=== PATIENT | male | born 1950 | race Caucasian/White ===

== ENCOUNTER 2016-12-09 01:03 | Day surgery (SDC) | payer MEDICARE ==
[2016-12-09] VITALS (14 sets, daily range): BP systolic 142–173; BP diastolic 64–89; PULSE 72–77; RESP 16–20; O2SAT 93–97
[~2016-12-09 01:03] MED LIST: AMLO10TA3 PO; ATOR10TA66 PO; CHOL10008 PO; FENO160T14 PO; INSLIS SUBQ; INSU100I13 SUBQ; WARF10TA4 PO
[2016-12-09] MEDS ORDERED: 0.9% Sodium Chloride 1,000 ML IV ONE (07:00)
[2016-12-09 07:46] LABS: BASOPHILS % (AUTO) 0.1 % (0-3); EOSINOPHILS % (AUTO) 0 % (0-5)
[2016-12-09 07:52] LABS: MONOCYTES % (AUTO) 2.5 % (4-12); Mean Corpuscular Hemoglobin 26.6 pg (27.0-35.0); Mean Corpuscular Volume 81.5 fL (81-100); Platelet Count 506 bil/L (150-400)
[2016-12-09] MEDS ORDERED: Sodium Bicarb (50 mEq) 8.4% 1 mEq/mL 50 mL Syringe ONE (07:55)
[2016-12-09] MEDS ORDERED: Heparin 10,000 Unit/1,000 mL NS Premix IV ONE (08:01)
[2016-12-09] MEDS ORDERED: Heparin 1,000 Unit/mL 10 mL Inj ONE (08:01)
--- NOTE | 2016-12-09 08:45 | NUR ---
0700 admit: Patient ambulates into department via walker with sister. His questions are answered, IV;s X 2 started and labs drawn. Consent previously signed and he is prepped for procedure.
[2016-12-09] MEDS ORDERED: fentaNYL-PF 50 mCg/mL 2 mL Inj ONE (08:48)
--- NOTE | 2016-12-09 10:32 | DI96 ---
[address] [address] PERIPHERAL CATHETERIZATION/INTERVENTION REPORT PATIENT: KENNETH WITT : 1950 MR#: [id number] ADMIT: 12/09/2016 JOB ID: [id number] DATE: 12/09/2016 PATIENT PROFILE: The patient is a 66-year-old male with history of obesity, obstructive sleep apnea, hypertension, hyperlipidemia, diabetes and nicotine addiction. He has nonhealing ulcer of both feet. PROCEDURE: 1. Conscious sedation for 40 minutes. 2. Vascular access from the left groin. 3. Selective contralateral right superficial femoral angiogram with runoff. 4. Selective ipsilateral left common femoral angiogram with runoff. VASCULAR CLOSURE DEVICE: None. COMPLICATIONS: None. METHOD: Conscious sedation was achieved with IV Versed and IV fentanyl. Vascular access was obtained from the left groin under 1% lidocaine local anesthesia using a 5-Kosovan sheath. A 5-Kosovan rim catheter was initially used but could not get over the horn. A 5-Kosovan VCF catheter was then used and was able to get over the horn direct into the right superficial femoral artery. This was exchanged over a Glidewire into a 4-Kosovan slip cath. The tip of the slip catheter was placed in the proximal portion of the right superficial femoral artery. Selective contralateral right superficial femoral angiogram with runoff was performed in the AP view by injecting contrast at a rate of 4 cc/sec for 7 seconds. An ZACARIAS and POSEY oblique view was performed at the trifurcation below the knee. The slip catheter was then removed. Selective ipsilateral left common femoral angiogram with runoff was performed via the femoral sheath by injecting contrast at a rate of 4 cc/sec for 7 seconds. This catheter was withdrawn. Following the sheath removal, hemostasis was achieved by manual compression. The patient tolerated the procedure well. [facility]. TOTAL CONTRAST USED: 62 cc. FLUOROSCOPY TIME: 4.8 minutes. TOTAL RADIATION DOSE: 222 mGy. RESULTS: 1. The right superficial femoral artery has 40% stenosis in the distal mid portion. The previous stent in the distal right superficial femoral artery and right popliteal artery has diffuse minor stenosis of 20%-30%. 2. The below-knee right popliteal artery has 75% stenosis. The right anterior tibial artery appears normal. The right tibioperoneal trunk has minor irregularity. The right peroneal artery has 70% stenosis at its origin. The right posterior tibial artery has critical 98% stenosis at its origin. 3. The left common femoral artery has minor 10%- 20% stenosis. The left superficial femoral artery has minor irregularity of 20% stenosis. The left popliteal artery has minor disease. There is three-vessel runoff below the right knee. They all have minor irregularity. CONCLUSION: 1. Patent right distal superficial femoral artery stent. 2. Severe 75% distal [id number] right popliteal artery stenosis. 3. Severe stenosis of the origin of the right popliteal artery and right posterior tibial artery. PLAN: Percutaneous intervention will be performed to the right popliteal artery, right peroneal and posterior tibial artery in approximately two weeks due to his chronic kidney disease, stage 4.
--- NOTE | 2016-12-09 10:35 | NUR ---
1000 post angiogram: patient returns from [facility] alert and denying pain. R groin site is soft and dry. Patient's sat level noted to drop to low 80's when drifting to sleep.
[2016-12-09] MEDS ORDERED: Insulin Human REGular-Omnicell 100 Unit/mL SUBQ ONE (12:15)
--- NOTE | 2016-12-09 16:34 | NUR ---
D/C home from [facility] following a recovery post angiogram diagnostic study of lower extremities. Pt will return for further intervention at a later date, office will contact patient at home. Left puncture site is soft and non-tender at time of discharge from [facility]. Discharge instructions reviewed with his sister over the phone by Lila Parish RN. Pt declines to listen to discharge instructions, and wished his sister to sign his discharge instructions.
== END 2016-12-09 23:59 | disposition home or self-care (01) ==
LOC: SOUO 01:03
PROVIDERS: ATTEND Internal Medicine Interventional Cardiology
DX: I70.234 Atherosclerosis of native arteries of right leg with ulceration of heel and midfoot (principal); L97.419 Non-pressure chronic ulcer of right heel and midfoot with unspecified severity; I70.235 Atherosclerosis of native arteries of right leg with ulceration of other part of foot; L97.519 Non-pressure chronic ulcer of other part of right foot with unspecified severity; I70.245 Atherosclerosis of native arteries of left leg with ulceration of other part of foot; L97.529 Non-pressure chronic ulcer of other part of left foot with unspecified severity; E11.621 Type 2 diabetes mellitus with foot ulcer; E11.65 Type 2 diabetes mellitus with hyperglycemia; E11.22 Type 2 diabetes mellitus with diabetic chronic kidney disease; I12.9 Hypertensive chronic kidney disease with stage 1 through stage 4 chronic kidney disease, or unspecified chronic kidney disease; N18.4 Chronic kidney disease, stage 4 (severe); E78.5 Hyperlipidemia, unspecified; G47.33 Obstructive sleep apnea (adult) (pediatric); F17.210 Nicotine dependence, cigarettes, uncomplicated; E66.01 Morbid (severe) obesity due to excess calories; Z68.35 Body mass index [BMI] 35.0-35.9, adult; Z86.711 Personal history of pulmonary embolism; Z79.4 Long term (current) use of insulin; Z79.01 Long term (current) use of anticoagulants; Z95.820 Peripheral vascular angioplasty status with implants and grafts
CPT/HCPCS: 36247; 36415; 75716; 80048; 85025; 93005; 99152; 99153; C1769; J1644; J1815; J2060; J2250; J3010; J7030; Q9967

== ENCOUNTER 2016-12-15 13:30 | Inpatient (IN) | payer MEDICARE ==
[~2016-12-15] VITALS: Ht 190.5 cm; Wt 104.4 kg
[2016-12-15 15:16] VITALS: BP 159/88; PULSE 77; RESP 18; O2SAT 97
[2016-12-15] MEDS ORDERED: Polyethylene Glycol (PEG) 17 Gm Powder PO PRN (16:10)
[2016-12-15] MEDS ORDERED: Ondansetron 2 mg/mL 2 mL Inj IVPUSH PRN (16:10)
[2016-12-15] MEDS ORDERED: Alum-Mag Hydrox-Simeth 30 mL Suspension PO PRN (16:10)
[2016-12-15] MEDS ORDERED: Glucose 40% Oral Gel 15 Gm Tube PO PRN (16:25)
[2016-12-15] MEDS ORDERED: Dextrose 10% 250 ML IV PRN (16:25)
--- NOTE | 2016-12-15 16:54 | PCM.HPMED ---
Subjective Date of Service Dec 15, 2016 Primary Provider: Admitting Physician: Eron Reinoso Primary Care Physician: Nida Garza MD Attending Physician: Eron Reinoso Chief Complaint: Worsening of left heel ulcer, admitted here for vascular procedure by Dr Arcos later this week History of Present Illness: Patient states that his right heel wound is getting worse and gets infected. He was seen at the wound clinic at [place] today when they noted it to be worse the arranged for him to be admitted here so that could form of a vascular procedure on his right tibial or popliteal artery that had been planned for later this month. Patient had a wound culture that showed P.vulgaris. It is not clear if he was placed on antibiotic therapy for that. More recently he had been on Augmentin and then on December 05 a culture was done which showed Morganella morganii and providentia rettgeri. Augmentin was changed to Cefdinir. The wound clinic faxed these cultures over to us. He does have some erythema in the third way up the posterior calf but he says this is not recently changed. He is having more pain and she also has been using some old OxyContin. He did have episode of sweats about week ago but none more recently and no fever or chills. He does have a lot of drainage from the right heel but he is not sure that this is recently changed although he does think the odor is more foul. Review of Systems: He had an episode of vertigo 3 weeks ago that lasted 24 hours and none since Intermittent chronic constipation A year and half ago his weight was over 400 and he has had some intentional weight loss followed by unintentional weight loss since his weight is currently 280 pounds Review of systems otherwise unremarkable Allergies Coded Allergies: metformin (Unverified Allergy, Mild, 12/09/16) DIARRHEA oxycodone (Unverified Allergy, Mild, 12/09/16) Home Medications He is not able to list his medications according to the information from [facility] current medications are: Warfarin (dose uncertain) Methylprednisolone 4 mg, and early November but dose and duration unclear Acidophilus 1 tablet twice a day Aspart insulin 30 units twice a day (but then there is mention of his difficulties affording insulin Lantus insulin 30 units at bedtime (but then patient says he takes 30 in the morning and sometimes 30 and bedtime depending on his glucose then became irritated and not discuss details any further) Atorvastatin 10 mg daily Vitamin D 1000 units daily Fenofibrate 160 mg daily Lispro insulin 3 times a day with meals per sliding scale Cefdinor 300 mg every 12 hours Amlodipine 10 mg daily Oxycodone 5 mg/acetaminophen 325 mg 1-2 tablets every 6 hours when necessary pain (but then patient gives a long story about not being able to tolerate oxycodone due to nausea vomiting and abdominal pain but does quite well on OxyContin and has been taking this from a cesxsbq-iuwo-gqu prescription recently ) PMH Obesity (says was over 400 pounds a year and half ago but currently 280 pounds) Obstructive sleep apnea is on his problem list but he denies this, says he has never been tested for, and does not have a CPAP machine Hypertension Hyperlipidemia Diabetes mellitus with neuropathy Peripheral vascular disease with Doppler on November 27 showing an occluded right posterior tibial artery which had been patent prior exam Nonhealing ulcers of both feet 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 Ruptured lumbar disc in 1998 Surgical History Tonsillectomy Surgery on a left kidney cyst Family History He declines to give this information Social History Occupation: retired appliance repairman Hx Alcohol Use: No Hx Substance Use: No Smoking Status: Current Every Day Smoker (currently half pack per day, at his max was a pack per day) Exam Vital Signs Vital Sign - Last Date Time Temp Pulse Resp B/P Pulse Ox O2 Delivery O2 Flow Rate FiO2 12/15/16 15:16 36.8 77 18 159/88 97 Room Air Exam General: Alert and oriented, no acute distress HEENT: Unremarkable Neck: No JVD, carotids 2+ Heart: Regular, 2/6 systolic murmur which seems loudest at the right upper sternal border Lungs: Clear Abdomen: Soft, non-tender Extremities: Did not remove the dressings from the left foot, did look under the dressing on the right heel and there is a large area with thick appearing skin and an irregular tear in this that is draining foul smelling reddish brown thick fluid, he has some surrounding erythema that extends one third up the posterior calf. Not able to easily locate pedal pulses. Neuro: hAnd ambulette driver are strong and equal, moves both lower extremities well Lab and Diagnostics Labs Labs at [facility] today: CBC showed a WBC of 16.0 with 70.2% neutrophils, hemoglobin of 11.8 Chemistries: Alkaline phosphatase 202 Total bili 0.5 B UN 45 Creatinine 2.1 Glucose 172 Total protein 8.3 Albumin 3.3 AST 30 ALP 26 Sodium 137 Potassium 4.3 Chloride 103 Bicarbonate 25 Assessment & Plan # Infected Right foot ulcer - Based on December 05 wound culture at [facility] Christina should provide adequate coverage so we will begin this - Wound nurse evaluation - will use IV morphine for pain control - Since he states he is unable to take oxycodone (although OxyContin is okay), will order some oral short acting morphine as needed as well # Peripheral vascular disease - Angiogram here on December 09 showed: 1. Patent right distal superficial femoral artery stent. 2. Severe 75% distal [id number] right popliteal artery stenosis. 3. Severe stenosis of the origin of the right popliteal artery and right posterior tibial artery. - This apparently was done after Doppler at [facility] November 27 felt right posterior tibial artery was occluded - Vascular procedure by Dr. Armstrong planned for the morning of December 18 # Diabetes mellitus - Difficult to tell what insulin he is actually taking home - We will start him with Lantus 30 mg at bedtime and the high-dose lispro sliding scale - He refuses a diabetic or heart healthy diet and therefore was placed on a general diet # Chronic anticoagulation with warfarin for history of DVT and pulmonary embolus - We will hold warfarin due to planned vascular procedure on December 18 - Instead place on therapeutic Lovenox but hold 12 hours prior to procedure # Hypertension and hyperlipidemia - Continue usual medications which appear to be atorvastatin, fenofibrate, and amlodipine # Systolic heart murmur - It sounds like an echocardiogram might have been suggested to him but he did not want to do it or never got around to Sheryl Newby MD Dec 15, 2016 16:54
[2016-12-15 17:04] LABS: BASOPHILS % (AUTO) 0.2 % (0-3); EOSINOPHILS % (AUTO) 1.9 % (0-5); MONOCYTES % (AUTO) 6.5 % (4-12); Mean Corpuscular Hemoglobin 26.3 pg (27.0-35.0); NEUTROPHILS % (AUTO) 64.1 % (40-74); Platelet Count 522 bil/L (150-400)
[2016-12-15] MEDS: Insulin LISPRO 300 Unit/3 mL Inj SUBQ SCH ×2 (17:30→21:13)
[2016-12-15] MEDS ORDERED: Piperacillin-Tazo 3.375 Gm Inj 3.375 GM in Dextrose 5% Minibag Plus 50 ML IV ONE (18:35)
[2016-12-15 18:57] LABS: APPEARANCE,URINE CLEAR (CLEAR,HAZY); COLOR,URINE YELLOW (YELLOW); OCCULT BLOOD,URINE TRACE (NEGATIVE)
[2016-12-15 18:58] LABS: UROBILINOGEN,URINE NORMAL (NORMAL)
[2016-12-15 19:35] LABS: INR 1.97 ratio
--- NOTE | 2016-12-15 19:40 | NUR ---
Admission Pt arrived from [facility] at 1506, was able to transfer self to bed walking. Pt states he has no pain "unless maybe I jumped a few times just on that foot." Pt has left wrist IV s/l. SIMRAN POON RA, A&O x 3. Poor historian, attempted to do admission and pt unable to answer most questions. Pt using urinal in bed. Asking multiple times when he can eat or drink. Pt has multiple skin abrasions over body and both feet have dressings in place. Pt oriented to room and call light, bed in low. Care continues.
[2016-12-15] MEDS ORDERED: 0.9% Sodium Chloride 250 ML ONE (19:46)
[2016-12-15] MEDS: Sodium Chloride LOK Flush 10 mL Syringe IVFLUSH SCH (20:22)
--- NOTE | 2016-12-15 20:55 | PCM.CONPHA ---
Subjective Date of Service: Dec 15, 2016 Worsening of left heel ulcer, admitted here for vascular procedure by Dr Josselyn middleton this week Reason for Pharmacy Consult: Anticoagulation Management Objective Vital Signs Date Time Temp Pulse Resp B/P Pulse Ox O2 Delivery O2 Flow Rate FiO2 12/15/16 15:16 36.8 77 18 159/88 97 Room Air Weight (Kilograms): 132.000 Height (Feet): 6 Height (Inches): 3.00 Test 12/15/16 17:01 12/15/16 18:22 12/15/16 19:05 White Blood Count 15.3th/mm3 (3.8-10.1) Red Blood Count 4.45mil/mm3 (4.40-5.80) Hemoglobin 11.7g/dL (13.8-17.2) Hematocrit 36.5% (41.0-50.0) Mean Corpuscular Volume 82.0fL (81-100) Mean Corpuscular Hemoglobin 26.3pg (27.0-35.0) Mean Corpuscular Hemoglobin Concent 32.1% (32.0-37.0) Red Cell Distribution Width 15.5% (12.3-15.4) Platelet Count 522bil/L (150-400) Neutrophils (%) (Auto) 64.1% (40-74) Lymphocytes (%) (Auto) 26.0% (14-46) Monocytes (%) (Auto) 6.5% (4-12) Eosinophils (%) (Auto) 1.9% (0-5) Basophils (%) (Auto) 0.2% (0-3) Sodium Level 134mEq/L (134-144) Potassium Level 4.7mEq/L (3.5-5.2) Chloride Level 98mEq/L (97-108) Carbon Dioxide Level 19mmol/L (18-29) Blood Urea Nitrogen 40mg/dL (8-27) Creatinine 1.86mg/dL (0.76-1.27) Estimat Glomerular Filtration Rate 39mL/min (>59) Glucose Level 165mg/dL (60-99) Calcium Level 9.1mg/dL (8.5-10.1) Total Bilirubin 0.3mg/dL (0.0-1.2) Aspartate Amino Transf (AST/SGOT) 27U/L (0-50) Alanine Aminotransferase (ALT/SGPT) 16U/L (0-44) Alkaline Phosphatase 170U/L (25-160) Total Protein 7.0g/dL (6.4-8.4) Albumin 2.5g/dL (3.4-5.0) Urine Color Yellow (YELLOW) Urine Appearance Clear (CLEAR,HAZY) Urine pH 7.0 (5.0-8.0) Urine Specific [place] 1.010 (1.003-1.035) Urine Protein Negativemg/dL (NEG,TRACE) Urine Glucose (UA) Negativemg/dL (NEGATIVE) Urine Ketones Negativemg/dL (NEGATIVE) Urine Occult Blood Trace (NEGATIVE) Urine Nitrite Negative (NEGATIVE) Urine Bilirubin Negative (NEGATIVE) Urine Urobilinogen Normalmg/dL (NORMAL) Urine Leukocyte Esterase Negative (NEGATIVE) Urine RBC 0-2/hpf (0-2) Urine WBC 0-5/hpf (0-5) Urine Epithelial Cells None/hpf (NONE-MOD) Urine Crystals None seen (NONE SEEN) Urine Bacteria Few/hpf (NONE-FEW) Urine Hyaline Casts None/lpf (NONE) Urine Granular Casts None seen (NONE SEEN) Urine Waxy Casts None seen (NONE SEEN) Urine Red Blood Cell Casts None seen (NONE SEEN) Urine White Blood Cell Casts None seen (NONE SEEN) Urine Mucus None seen (None Seen) Urine Trichomonas None seen (NONE SEEN) Urine Yeast None (NONE SEEN) Urinalysis Comment None Urine Culture Reflexed Not indicated Prothrombin Time 21.4sec (8.1-12.5) Prothromb Time International Ratio 1.97ratio Assessment/Plan Assessment/Plan ENOXAPARIN MANAGEMENT A\ 66YO M ADMITED FOR RIGHT HEEL WOUND WITH PLANNED VASCULAR PROCEDURE December PT TAKES WARFARIN AT HOME FOR HISTORY OF DVT/PE CURRENT INR =1.97 APN=955. GFR=61 Test 12/15/16 17:01 12/15/16 18:22 12/15/16 19:05 White Blood Count 15.3th/mm3 (3.8-10.1) Red Blood Count 4.45mil/mm3 (4.40-5.80) Hemoglobin 11.7g/dL (13.8-17.2) Hematocrit 36.5% (41.0-50.0) Mean Corpuscular Volume 82.0fL (81-100) Mean Corpuscular Hemoglobin 26.3pg (27.0-35.0) Mean Corpuscular Hemoglobin Concent 32.1% (32.0-37.0) Red Cell Distribution Width 15.5% (12.3-15.4) Platelet Count 522bil/L (150-400) Neutrophils (%) (Auto) 64.1% (40-74) Lymphocytes (%) (Auto) 26.0% (14-46) Monocytes (%) (Auto) 6.5% (4-12) Eosinophils (%) (Auto) 1.9% (0-5) Basophils (%) (Auto) 0.2% (0-3) Sodium Level 134mEq/L (134-144) Potassium Level 4.7mEq/L (3.5-5.2) Chloride Level 98mEq/L (97-108) Carbon Dioxide Level 19mmol/L (18-29) Blood Urea Nitrogen 40mg/dL (8-27) Creatinine 1.86mg/dL (0.76-1.27) Estimat Glomerular Filtration Rate 39mL/min (>59) Glucose Level 165mg/dL (60-99) Calcium Level 9.1mg/dL (8.5-10.1) Total Bilirubin 0.3mg/dL (0.0-1.2) Aspartate Amino Transf (AST/SGOT) 27U/L (0-50) Alanine Aminotransferase (ALT/SGPT) 16U/L (0-44) Alkaline Phosphatase 170U/L (25-160) Total Protein 7.0g/dL (6.4-8.4) Albumin 2.5g/dL (3.4-5.0) Urine Color Yellow (YELLOW) Urine Appearance Clear (CLEAR,HAZY) Urine pH 7.0 (5.0-8.0) Urine Specific [place] 1.010 (1.003-1.035) Urine Protein Negativemg/dL (NEG,TRACE) Urine Glucose (UA) Negativemg/dL (NEGATIVE) Urine Ketones Negativemg/dL (NEGATIVE) Urine Occult Blood Trace (NEGATIVE) Urine Nitrite Negative (NEGATIVE) Urine Bilirubin Negative (NEGATIVE) Urine Urobilinogen Normalmg/dL (NORMAL) Urine Leukocyte Esterase Negative (NEGATIVE) Urine RBC 0-2/hpf (0-2) Urine WBC 0-5/hpf (0-5) Urine Epithelial Cells None/hpf (NONE-MOD) Urine Crystals None seen (NONE SEEN) Urine Bacteria Few/hpf (NONE-FEW) Urine Hyaline Casts None/lpf (NONE) Urine Granular Casts None seen (NONE SEEN) Urine Waxy Casts None seen (NONE SEEN) Urine Red Blood Cell Casts None seen (NONE SEEN) Urine White Blood Cell Casts None seen (NONE SEEN) Urine Mucus None seen (None Seen) Urine Trichomonas None seen (NONE SEEN) Urine Yeast None (NONE SEEN) Urinalysis Comment None Urine Culture Reflexed Not indicated Prothrombin Time 21.4sec (8.1-12.5) Prothromb Time International Ratio 1.97ratio Vital Signs (Last) Date Time Temp Pulse Resp B/P Pulse Ox O2 Delivery O2 Flow Rate FiO2 12/15/16 15:16 36.8 77 18 159/88 97 Room Air P\ ENOXAPARIN 130MG SUBQ Q12H WITH FIRST DOSE TONIGHT DUE TO SUBTHERAPEUTIC INR. WILL MONITOR SERUM CREATININE DAILY Get [facility] Dec 15, 2016 20:55
[2016-12-15 21:00] VITALS: BP 184/85; PULSE 76; RESP 20; O2SAT 94
[2016-12-15] MEDS: ENOXAPARIN SUBQ SCH ×2 (21:19)
[2016-12-15] MEDS: Insulin GLARgine 100 Unit/mL Syringe SUBQ SCH (21:20)
[2016-12-16] MEDS: Sodium Chloride LOK Flush 10 mL Syringe IVFLUSH SCH ×3 (00:30→16:18)
[2016-12-16 02:00] VITALS: BP 160/79; PULSE 92; RESP 20; O2SAT 94
[2016-12-16] MEDS ORDERED: Piperacillin-Tazo 3.375 Gm Inj 3.375 GM in Dextrose 5% Minibag Plus 50 ML IV SCH (02:00)
--- NOTE | 2016-12-16 03:17 | NUR ---
activity pt refused skin assessment but allowed nurse to do the rest of the assessment. pt was upset at start of shift. he said he had not been given dinner and his urinal had been left in the bathroom and he had been told he couldn't get out of bed. nurse gave pt his urinal and had a sand which and milk brought to patient. he was visibly less upset after eating but still said he just wanted to be left alone to go to bed. he would not participate in admit questions and stated he did not know his medications. he declined to switch beds to a [facility] bed. dressings on pts feet remain c/d/i. R foot dressing has no visible drainage on it but does have foul smell. pt denied need for pain medication at HS. he asked for nurse to check on him at 0200. at 0200 pt still denied need for pain medication. he has been sleeping soundly for most of the night. charge nurse has completed as much of pt admit as possible from [facility] records. pt has call light within reach, bed in low position. hourly rounding continues .
[2016-12-16 07:28] VITALS: BP 169/81; PULSE 91; RESP 18; O2SAT 95
[2016-12-16] MEDS: Insulin LISPRO 300 Unit/3 mL Inj SUBQ SCH ×4 (08:43→22:00)
[2016-12-16] MEDS: ENOXAPARIN SUBQ SCH ×4 (09:28→22:14)
--- NOTE | 2016-12-16 12:20 | NUR ---
Right heel ulceration Notified Dr. Gold that patient refusing to see wound care in [place]. New orders to change dressing to right foot ulceration. per Dr. gold ABD pad and kerlix around it. Followed orders for dressing change to right heel with c/o pain to right foot. new orders for physician consult with Dr. Rosa for diabetic foot ulcer.
--- NOTE | 2016-12-16 12:25 | NUR ---
Bariatric bed Notified patient r/t bariatric bed comfort and states," i would try it.". Bed switched to Bariatric bed and tolerating well.
[2016-12-16 12:34] VITALS: BP 128/79; PULSE 79; RESP 18; O2SAT 94
--- NOTE | 2016-12-16 13:40 | NUR ---
Podiatry Dr. Rosa at bed side.
--- NOTE | 2016-12-16 14:44 | NUR ---
Faxed referral to [facility] per MUD JACK OPERATOR and MD Order
--- NOTE | 2016-12-16 14:53 | CONS ---
[address] [address] CONSULTATION REPORT PATIENT: KENNETH WITT : 1950 MR#: [id number] ADMIT: 12/15/2016 JOB ID: [id number] DATE OF SERVICE: 12/16/2016 CONSULTATION REQUESTED BY: Dr. Joel Gold for the patient's right heel ulceration. HISTORY: The patient is a 66-year-old male with a history of peripheral vascular disease, chronic use of anticoagulants, and type 2 diabetes. The patient has had multiple vascular procedures in the past. He is currently hospitalized for worsening right heel ulceration. He is very upset upon my arrival and using some curse words and trying to get me out of the room. He does not want anyone to "rip his bandages off again today," as the nurses had just wrapped him up. This consultation was received about an hour prior to the patient having his bedding changed. After further conversation with him, I explained that my job would be to participate in limb salvage and if he refused, that I may not be able to treat him appropriately in the future. The patient then allowed me to examine his right foot but would not let me examine his left foot. PAST MEDICAL HISTORY: 1. Type 2 diabetes with peripheral neuropathy. 2. Peripheral vascular disease with occlusion of the right posterior tibial artery. Nonhealing ulcers on both feet. 3. History of DVT and pulmonary embolus. 4. Obesity. 5. Obstructive sleep apnea. 6. Hypertension. 7. Hyperlipidemia. 8. Laryngeal tumor for which the patient has declined treatment. ALLERGIES: 1. METFORMIN. 2. OXYCODONE. REVIEW OF SYSTEMS: The patient denies fevers, chills, nausea, vomiting. He has had recent weight loss over the past year and a half. The patient is quite uncooperative and does not want to provide any further history on this exam. The rest of it reviewed per intake history and physical by PHYSICAL EXAM: Upon my arrival, the patient's vital signs were blood pressure 128/79, pulse 79, respirations 18, temperature 36.7 degrees Celsius, pulse ox 94% at room air. Labs showed white blood cell count of 15,300, hemoglobin 11.7, hematocrit 36.5, platelet count 522,000. Chem panel shows and increasing creatinine at 1.96, hemoglobin A1c of 12. Focused right lower extremity examination shows mild edema in the distal lower leg and around the heel. Malodorous full-thickness eschar involving the entire fat pad of the heel and extending medially and posteriorly, measuring approximately a total of 7 x 8 cm in size. Depth difficult to ascertain. There is cellulitis extending approximately 10 cm to the posterior aspect of the lower leg and about 3 cm down into the foot and midfoot area. He has a well palpable dorsalis pedis pulse and a nonpalpable posterior tibial pulse which corresponds to the angiogram findings from December [address] Romero where he was found to have a severe stenosis of the popliteal artery and near occlusion of the posterior tibial artery. There is a callus on the plantar aspect of the forefoot with a small ulceration within it that is confined to the level of the skin. He has dystrophic and thickened toenails with no webspace maceration. ASSESSMENT: 1. Wet gangrene, right foot. 2. Peripheral vascular disease, right lower extremity. 3. Uncontrolled diabetes. PLAN: After evaluating the patient today, it is clear that he is going to have extensive loss of the plantar fat pad of the heel. It is unclear how far the soft tissue loss extends. At this point, it is not safe to perform any surgical intervention to debride the soft tissue since it is currently well-controlled with antibiotics. He should be kept on IV antibiotics for the duration of his revascularization attempt which is scheduled for December 18 and wide debridement of the heel is going to be necessary after that. Limb salvage is questionable based on the amount of soft tissue loss for the foot, and the patient will be a very difficult candidate for prolonged wound care and limb salvage efforts. If preferred wound care team in [place] and he does not wish to continue any outpatient visits here, we will perform what we have to, to try to salvage his limb after revascularization is complete. I will recheck him tomorrow to see if I can discuss this further with him. Otherwise nurses will be given orders for dressing changes with Betadine to keep it dry. The current dressing should stay intact 24 hours and then replaced every 24 hours with Betadine soaked gauze, ABD pad, Kerlix, and an Colin wrap, and heel should be offloaded at all times. At this point, I do not know the status of his left foot as he has declined examination. Please do not hesitate to give me a call if any further clarification of my findings is necessary. STEVEN
--- NOTE | 2016-12-16 15:13 | NUR ---
Social Work- Initial Assessment Data: See Initial Assessment. Pt is a 66 year old male admitted 12/15/16 for right leg wound per H&P. Pt's insurance is [employer]. Pt's PCP is Nida Garza MD. Pt's NOK is sister Monica Cortez [phone]. Pt's readmit risk score is 4, high risk. Podiatry consulted today. ID is following pt. SW met with pt at bedside regarding discharge plan, SW role explained. Pt alert and oriented x3. Pt resides in [place] alone in a trailer with 2 steps to enter and no steps inside. Pt uses a cane and walker at home. Pt continues to drive. Pt reports he is independent at baseline. Pt has no LTC or VA benefits. Pt has no HH history but has history at [facility] and [facility]. Pt has no DPOA on file, pt asked SW call his sister and ask her about the DPOA paperwork. No paperwork was provided at bedside. Pt identified his sister as designated contact center team lead. SW placed call to Monica Cortez regarding discharge plan, left message requesting return call. No return call at the time of this note. SW acknowledges SNF order. SW spoke with pt regarding SNF. Pt is agreeable but would prefer to continue outpt wound care. Pt is not agreeable to using any wound care in [place]. Pt is able to drive to his appointments and prefers to live at home. SW explained that depending on level of acuity for wounds, abx that are needed, and PT needs, pt may be better suited for a short term stay at a SNF. Pt reluctantly agreeable. Pt states that he would participate in any PT if needed. SNF CHOICE LIST PROVIDED. Pt chose [facility] as his only choice since he has history of staying there. [employer] COMM[employer]ICATIONS SERGEANT to make referral to [facility] SNF. Paperwork in chart. PASRR in folder. SW will continue to follow. Assessment: Pt for whom SNF is medically indicated. Plan: Referral made to [facility]. Paperwork in chart. PASRR in folder. SW will continue to follow. EMMETT Duran Addendum: 12/16/16 at 1521 by KENTRELL LUGO SS Amended: Links added. Addendum: 12/16/16 at 1535 by KENTRELL LUGO SS CMS Discharge Planning Checklist provided to pt. Social Work also provided contact information and plan on whiteboard. Mirela Lugo, EMMETT
--- NOTE | 2016-12-16 15:18 | PCM.PNMED ---
Subjective Date of Service Dec 16, 2016 Subjective He is seen today to follow-up the diabetes, the diabetic foot infections, and the gangrene of the right heel. Other significant diagnoses are persistent leukocytosis, pulmonary embolus, hypertension, peripheral arterial disease. I have spoken with Dr. Rosa, who was kind enough to see him in consultation due to the severe gangrene infection/ulceration of the foot. He as pending a vascular circulation salvage procedure later this week. WBC is 15.3 and INR 1.97 yesterday. Exam Vital Signs Vital Sign - Last Date Time Temp Pulse Resp B/P Pulse Ox O2 Delivery O2 Flow Rate FiO2 12/16/16 07:28 37.0 91 18 169/81 95 Room Air Intake and Output 12/15/16 12/15/16 12/16/16 Cumulative From/Thru 15:00 23:00 07:00 12/15/16 16:00 - 12/15/16 18:32 Intake Total 0 ml 0 ml Output Total 350 ml 350 ml Balance -350 ml -350 ml Intake Oral 0 ml 0 ml Output Urine Total 350 ml 350 ml Exam Alert and oriented 3. He is quite agitated. When I ask him if this foot hurts he says it hurts like a "MF". Heart is regular rate and rhythm without murmur. Lungs are clear to auscultation bilaterally Extremities have trace bilateral pitting edema with worsened pedal edema especially on the right. There is a wide ulceration/loss of the callus and deeper skin to the right heel. This has a purulent smell and has strands of skin hanging. IVs and Medications Medications Reviewed: Medications were reviewed in detail Lab and Diagnostics Result Diagram: 12/15/16 1701 12/16/16 0638 Assessment & Plan # Infected Right foot ulcer - Based on December 05 wound culture at [facility] showing Proteus vulgaris, Providencia rettgeri and Morganella Morganii Zosyn should provide adequate coverage so we will continue this - Wound nurse evaluation when available. Appreciate podiatry consult today. Potential debridement after the vascular procedure is pending. -Continue IV morphine for pain control - Since he states he is unable to take oxycodone (although OxyContin is okay), will continue some oral short acting morphine as needed as well # Peripheral vascular disease - Angiogram here on December 09 showed: 1. Patent right distal superficial femoral artery stent. 2. Severe 75% distal [id number] right popliteal artery stenosis. 3. Severe stenosis of the origin of the right popliteal artery and right posterior tibial artery. - This apparently was done after Doppler at [facility] November 27 felt right posterior tibial artery was occluded - Vascular procedure by Dr. Armstrong planned for the morning of December 18 # Diabetes mellitus - Difficult to tell what insulin he is actually taking home - We will continue him with Lantus 30 mg at bedtime and the high-dose lispro sliding scale - He refuses a diabetic or heart healthy diet and therefore was placed on a general diet # Chronic anticoagulation with warfarin for history of DVT and pulmonary embolus - We will hold warfarin due to planned vascular procedure on December 18 - Instead continue on therapeutic Lovenox but hold 12 hours prior to procedure # Hypertension and hyperlipidemia - Continue usual medications which appear to be atorvastatin, fenofibrate, and amlodipine # Systolic heart murmur - It sounds like an echocardiogram might have been suggested to him but he did not want to do it or never got around to P.vulgaris. It is not clear if he was placed on antibiotic therapy for that. More recently he had been on Augmentin and then on December 05 a culture was done which showed Morganella morganii and providentia rettgeri. VTE Mechanical Devices: Intermittant Pneumatic CD Omid Gold MD Dec 16, 2016 11:23
[2016-12-16 17:54] VITALS: BP 148/79; PULSE 80; RESP 14; O2SAT 94
--- NOTE | 2016-12-16 19:21 | NUR ---
Mentation Patient is alert and oriented X3. Able to make needs known. Denies pain or any discomfort to right heel. Dr. Rosa at bed side this shift and changed dressing to right heel. new dressing instructions to follow. Next dressing change tomorrow per Dr. Rosa. Stable oxygenation and vital signs. Call light with in reach for safety and uses appropriately. Stable mood this shift. On bariatric bed. Deneis chest pain or chest discomfort. No signs of respiratory distress noted. BM this shift. General diet. stable blood sugars and insulin per sliding scale. Elevated A1c. Continue to monitor pain, vital signs, safety, right and left foot for sign and symptoms of infection.
[2016-12-16 20:21] VITALS: BP 139/77; PULSE 82; RESP 18; O2SAT 95
[2016-12-16] MEDS: Insulin GLARgine 100 Unit/mL Syringe SUBQ SCH (22:13)
[2016-12-17] MEDS: Sodium Chloride LOK Flush 10 mL Syringe IVFLUSH SCH ×4 (00:30→18:14)
--- NOTE | 2016-12-17 01:33 | NUR ---
Activity Pt reports BM this shift, SBA with walker to restroom. L foot ulcer and R foot dressing being monitored. Gauze intact, some betadine visible on dressing. Pt reports no pain, no SOB, no chest pain. IV saline lock intact. Pt specifies that he usually takes lantus in the morning, he is willing to follow our schedule and I administer his dose at HS. CS of 180, no sliding scale insulin coverage needed. Pt refuses CPOX due to its alarm. Care continues
[2016-12-17 05:10] VITALS: BP 134/71; PULSE 74; RESP 18; O2SAT 93
[2016-12-17 07:13] LABS: Mean Corpuscular Hemoglobin 25.9 pg (27.0-35.0); Mean Corpuscular Volume 82.8 fL (81-100)
[2016-12-17] MEDS: Insulin LISPRO 300 Unit/3 mL Inj SUBQ SCH ×4 (08:00→22:43)
[2016-12-17 08:06] VITALS: BP 129/75; PULSE 72; RESP 18; O2SAT 92
[2016-12-17] MEDS: Piperacillin-Tazo 3.375 Gm Inj 3.375 GM in Dextrose 5% Minibag Plus 50 ML IV SCH ×2 (11:19→18:14)
[2016-12-17] MEDS: ENOXAPARIN SUBQ SCH ×2 (11:25)
[2016-12-17 14:17] VITALS: BP 125/77; PULSE 85; RESP 18; O2SAT 92
--- NOTE | 2016-12-17 16:00 | NUR ---
Foot wounds/Mentation: Patient refused to have RN assess foot wounds this morning. R foot appears to have darnell bandage and pt states L foot "only has calluses and there's no sense in looking at them". Patient is wearing non skid socks. Pt stated he is only allowing Dr Arcos assess his wounds. Dr Adam convinced patient to allow assessment, dressing change and debridement of wound. This afternoon patient was upset and stated "she chopped off my heel and wants to cut off my foot. I'm better off doing myself in." This RN stayed with patient for several minutes, listened to patient and attempted to reorient him letting him know we are only here to help. Will continue to monitor.
--- NOTE | 2016-12-17 16:30 | NUR ---
NUTRITION ASSESSMENT: ASSESS: 66 YO male admitted for diabetes foot infections with gangrene which may require debridement, podiatry following. Per notes, pt refused a diabetic diet on admit so pt was ordered a general diet, but diet has been changed to diabetic and pt is eating 100% of meals. If pt starts complaining about diabetic diet consider changing diet back to general. PMHx: PE/DVT, HTN, peripheral vascular disease, laryngeal tumor, obesity, CRISTOBAL, hyperlipidemia, DM with neuropathy. LABS: Reviewed. BUN 40, Cr 1.93, glu 165, A1C 12.0, Alb 2.5. MEDS: Reviewed. GI: BM x 1 today. SKIN: Non-healing ulcers on bilateral feet. CURRENT WT: 132.2 kg. Pt reports wt loss and states he used to weigh over 400 lbs. DIET: Diabetic. PO 100%. EST. NEEDS: 2052-5868 kcals (20-25 kcals/kg BW), 90-135 g protein (1.0-1.5 g/kg BW) NUTRITION DIAGNOSIS: 1.) Increase nutrient needs related to increased demand for nutrients as evidenced by chronic non-healing skin ulcers. NUTRITION INTERVENTION: 1.) Will add Glucerna BID between meals to encourage adequate po intake. MONITOR / EVAL: PO intake, labs, wounds, nutritional status. Follow per moderate nutritional risk guidelines.
--- NOTE | 2016-12-17 19:19 | PCM.PNMED ---
Subjective Date of Service Dec 17, 2016 Subjective Pt reports no pain in RLE. No overnight events. Exam Vital Signs Vital Sign - Last Date Time Temp Pulse Resp B/P Pulse Ox O2 Delivery O2 Flow Rate FiO2 12/17/16 14:17 36.7 85 18 125/77 92 Room Air Intake and Output 12/16/16 12/16/16 12/17/16 Cumulative From/Thru 15:00 23:00 07:00 12/15/16 16:00 - 12/17/16 06:28 Intake Total 142 ml 400 ml 542 ml Output Total 1300 ml 825 ml 2475 ml Balance -1158 ml -425 ml -1933 ml Intake Oral 0 ml 400 ml 400 ml IV Total 142 ml 142 ml Output Urine Total 1300 ml 825 ml 2475 ml # Voids 1 1 # Bowel Movements 0 1 1 Exam General: Alert and oriented, no acute distress HEENT: Unremarkable Neck: No JVD, carotids 2+ Heart: Regular, 2/6 systolic murmur which seems loudest at the right upper sternal border Lungs: Clear Abdomen: Soft, non-tender Extremities: right heel and there is a large area with thick appearing skin and an irregular tear in this that is draining foul smelling reddish brown thick fluid, he has some surrounding erythema that extends one third up the posterior calf. Neuro: moves both lower extremities well, CN2-12 Intact IVs and Medications Medications Reviewed: Medications were reviewed in detail Lab and Diagnostics Result Diagram: 12/17/1660912/17/1610 Assessment & Plan # Infected Right foot ulcer - Based on December 05 wound culture at [facility] showing Proteus vulgaris, Providencia rettgeri and Morganella Morganii. Zosyn should provide adequate coverage so we will continue this - Wound nurse evaluation when available. Potential debridement after the vascular procedure is pending. Will follow up with Podiatry. - Continue IV morphine for pain control. - NPO past Mn. # Peripheral vascular disease - Angiogram here on December 09 showed: 1. Patent right distal superficial femoral artery stent. 2. Severe 75% distal [id number] right popliteal artery stenosis. 3. Severe stenosis of the origin of the right popliteal artery and right posterior tibial artery. - This apparently was done after Doppler at [facility] November 27 felt right posterior tibial artery was occluded - Vascular procedure by Dr. Armstrong planned for the morning of December 18 # Diabetes mellitus - Difficult to tell what insulin he is actually taking home - We will continue him with Lantus 30 mg at bedtime and the high-dose lispro sliding scale - He refuses a diabetic or heart healthy diet and therefore was placed on a general diet # Chronic anticoagulation with warfarin for history of DVT and pulmonary embolus - We will hold warfarin due to planned vascular procedure on December 18 - Instead continue on therapeutic Lovenox but hold 12 hours prior to procedure # Hypertension and hyperlipidemia - Continue usual medications which appear to be atorvastatin, fenofibrate, and amlodipine # Systolic heart murmur - It sounds like an echocardiogram might have been suggested to him but he did not want to do it or never got around to Dispo- will be going to SNF pending resolution of medical issues. Pain Evaluation: Adequate Pain Control VTE Mechanical Devices: Venous Foot Pump Jermaine Rose MD Dec 17, 2016 19:19
[2016-12-17 19:49] VITALS: BP 126/77; PULSE 83; RESP 18; O2SAT 95
[2016-12-17] MEDS: 0.9% Sodium Chloride 1,000 ML IV SCH (22:33)
[2016-12-17] MEDS: Insulin GLARgine 100 Unit/mL Syringe SUBQ SCH (22:44)
[2016-12-18] VITALS (14 sets, daily range): BP systolic 107–150; BP diastolic 60–83; PULSE 66–84; RESP 11–21; O2SAT 93–98
--- NOTE | 2016-12-18 | CONS ---
[address] [address] CONSULTATION REPORT PATIENT: KENNETH WITT : 1950 MR#: [id number] ADMIT: 12/15/2016 JOB ID: [id number] DATE OF SERVICE: 12/17/2016 The patient is seen for infected right foot which began a couple of months ago. He was trying on new diabetic shoes which caused a blister which then turned into gangrene. The gangrene has been getting progressively worse. He was being seen at [facility] and he did consult with me at the [facility] above 2-3 weeks ago. It was recommended that he have a vascular intervention as an arterial ultrasound showed that his popliteal artery was completely occluded. The patient did not have any vascular intervention performed, however, he is scheduled for vascular intervention tomorrow by Dr. Cash. He also has a wounds on the left foot but denies any problems with those at this time. He denies any pain, fever, chills. He expresses frustration that the ulceration has gotten worse and the vascular intervention has not been done yet. PAST MEDICAL HISTORY: Significant for obesity, however, he has lost a significant amount of weight after his parents . 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 PAST SURGICAL HISTORY: Status post tonsillectomy and surgery on left kidney cyst. HOME MEDICATIONS: 1. Warfarin. 2. Methylprednisolone 4 mg. 3. Acidophilus one tablet twice a day. 4. Aspart insulin 30 units twice a day. 5. Lantus insulin 30 units at bedtime. 6. Atorvastatin 10 mg daily. 7. Vitamin D 1000 units daily. 8. Fenofibrate 160 mg daily. 9. Lispro insulin 3 times a day with meals per sliding scale. 10. Cefdinir 300 mg every 12 hours. 11. Amlodipine 10 mg daily. 12. Oxycodone 5-325 1-2 tablets every 6 hours p.r.n. pain. ALLERGIES: 1. METFORMIN. 2. OXYCODONE. SOCIAL HISTORY: Patient smokes approximately half pack per day. He does not use alcohol. PHYSICAL EXAMINATION: Blood pressure 126/77, pulse 83, respiratory rate 18, temp 37.1, pulse oximetry 95% on room air. Lower extremity exam: Dressing intact. There is a foul-smelling black eschar noted on the plantar aspect of the right heel which extends both medially and laterally. It measures approximately 7 x 8 cm. There is erythema and swelling along the lateral aspect of his heel extending proximally. The eschar is soft around the medial and lateral edges of the necrotic areas, however, there is mild nonpitting edema of the right lower leg and right foot. Dorsalis pedis and posterior tibialis arteries are nonpalpable. He has decreased tone, temperature, and turgor of skin. His toes are decreased in temperature. There is hyperkeratosis with dried blood, plantar first metatarsophalangeal joint and left hallux. No skin breakdown is noted. LABORATORY DATA: WBC 16.5, hemoglobin 11.1, hematocrit 35.5, platelets 523. Creatinine 1.93. ASSESSMENT AND PLAN: 1. Cellulitis with gangrene, right foot. It is noted that his white count continues to become elevated despite being on IV antibiotics. I am concerned about him developing sepsis due to the severity of the infection in his foot, and I recommended debridement of the ulceration prior to vascular intervention as this will be done tomorrow anyway. The ulceration is obviously infected and does not need a sterile environment for debridement. The patient is also neuropathic and did not require any anesthesia. Using a 10 blade, 11 blade I debrided the black eschar and the underlying necrotic tissue down to the plantar fascia as well as the calcaneus. It is noted that the plantar fascia appeared brown and olmstead discolored and the bone is also discolored. However, it was difficult to assess fully. I will get a better idea over the next few days whether or not the bone remains viable. If it does not, then, unfortunately, the patient would be looking at a below-knee amputation. The remaining ulceration was dressed using wet-to-dry normal saline, and hemostasis was achieved with pressure. The remaining dressing consisted of 4 x 4 gauze, ABD, Kerlix and an Colin wrap. The patient tolerated the procedure well. Neurovascular status intact to all toes of the right foot. 2. Diabetic neuropathic ulcerations, left foot. They appear to be benign at this time. There are no signs of infection and they may be closed at this time although they were open the last time I saw him at the wound clinic. 3. Peripheral vascular disease. Dr. Cash is scheduled to do vascular intervention tomorrow. I talked to the patient in the past about stopping smoking, however, he has been resistant to stopping. 4. Diabetes with peripheral neuropathy. He has uncontrolled blood sugars and this has resulted in him being profoundly numb. I explained to him that diabetic shoes can be of benefit to prevent skin injury. However, unfortunately, in his case, did create blisters. I have tried to explain in the past and again today that when he is to try any new shoes on that he is to break it in slowly and look for any skin irritation or inflammation and if this occurs, to stop wearing the shoes. His diabetes has been poorly controlled in the past which may also lead to more severe infections and lack of healing.
[2016-12-18] MEDS: Sodium Chloride LOK Flush 10 mL Syringe IVFLUSH SCH ×6 (00:30→16:30)
[2016-12-18] MEDS: Piperacillin-Tazo 3.375 Gm Inj 3.375 GM in Dextrose 5% Minibag Plus 50 ML IV SCH ×3 (01:08→17:31)
[2016-12-18] MEDS: 0.9% Sodium Chloride 1,000 ML IV SCH (05:20)
--- NOTE | 2016-12-18 05:37 | NUR ---
Sleep / NPO Patient NPO at midnight for am procedure. BS [id number] at [id number]. Denies pain, CP, SOB, and abdominal discomfort. Alert, oriented and able to make needs known.
[2016-12-18] MEDS ORDERED: 0.9% Sodium Chloride 1,000 ML IV ONE (06:00)
[2016-12-18 06:09] LABS: BASOPHILS % (AUTO) 0.3 % (0-3); EOSINOPHILS % (AUTO) 1.7 % (0-5); MONOCYTES % (AUTO) 6.3 % (4-12); Mean Corpuscular Hemoglobin 26.2 pg (27.0-35.0); NEUTROPHILS % (AUTO) 55.1 % (40-74); Platelet Count 516 bil/L (150-400)
[2016-12-18] MEDS ORDERED: 0.9% Sodium Chloride 1,000 ML ONE (07:53)
[2016-12-18] MEDS ORDERED: Heparin 10,000 Unit/1,000 mL NS Premix IV ONE ×3 (07:53→12:30)
--- NOTE | 2016-12-18 08:39 | NUR ---
Off Unit to Apartment Hotel Manager Pt taken via bed to Apartment Hotel Manager for revascularization procedure at 0839. A&Ox3, KHALIL, Stable condition, IV SL to left FA, Attempted 2nd line start - unsuccessful - call to IV therapy to meet pt in technical laboratory asst for IV start, Dressings to Bilateral feet/heels - CDI with reinforcement in place, No tele, 16fr. Cassie placed by SN Ansari with Instructor Kelsey Mauricio, Pt aware of procedure. Chart with pt. Report called with pt being wheeled off unit to [facility] in anticipation of recovery phase. Addendum: 12/18/16 at 1026 by FERNANDO GILLIAM RN NPO since midnight, did not receive AM medications
[2016-12-18] MEDS ORDERED: Heparin 1,000 Unit/mL 10 mL Inj ONE ×2 (08:56→11:18)
[2016-12-18] MEDS ORDERED: fentaNYL-PF 50 mCg/mL 2 mL Inj ONE ×2 (08:57→09:26)
[2016-12-18] MEDS ORDERED: Protamine Sulfate 10 mg/mL 5 mL Inj ONE (11:55)
--- NOTE | 2016-12-18 13:14 | DI96 ---
[address] [address] PERIPHERAL CATHETERIZATION/INTERVENTION REPORT PATIENT: KENNETH WITT : 1950 MR#: [id number] ADMIT: 12/15/2016 JOB ID: [id number] DATE OF SERVICE: 12/18/2016 PATIENT PROFILE: The patient is a 66-year-old male with a history of uncontrolled diabetes, hypertension, hypercholesterolemia, nicotine addiction, severe obesity, and obstructive sleep apnea. He had a nonhealing ulcer of the right foot. PROCEDURE: 1. Conscious sedation for 3 hours and 7 minutes. 2. Vascular access from the left groin under ultrasound guidance. 3. Balloon angioplasty and stenting to the right posterior tibial artery. 4. Balloon angioplasty and stenting to the right peroneal artery. 5. Drug-coated balloon angioplasty to the distal right peroneal artery and proximal portion of the right tibioperoneal branch. VASCULAR CLOSURE DEVICE: Perclose. COMPLICATIONS: None. METHOD: Conscious sedation was achieved with IV Versed and IV fentanyl. An attempt to obtain vascular access from the right groin by antegrade approach under ultrasound guidance was unsuccessful due to his large body size. Vascular access was then obtained from the left groin by retrograde approach under ultrasound guidance by putting a 6-Sudanese sheath. A 5-Sudanese VCF catheter was used to get over the horn and directed a Glidewire into the right superficial femoral artery. This was exchanged over a [place] Advantage wire and a 4-Sudanese slip cath into a 6-Sudanese 70 cm Raabe sheath. Repeated doses of heparin were given in order to maintain ACT above 250. An 0.035 QuickCross catheter was placed at the right below-knee popliteal artery. Selective contralateral right popliteal angiogram was performed in the AP view and ZACARIAS view. A Runthrough wire was placed inside the right posterior tibial artery. The Quick Cross catheter was then exchanged to a 6-Sudanese multipurpose guide. A Command wire was placed inside the peroneal artery. The lesion in the right posterior tibial artery was predilated with a 2.0 x 15 mm balloon. The right peroneal artery lesion was predilated with a 3.0 x 15 mm balloon. An attempt to perform kissing stent to the peroneal and posterior tibial lesions was unsuccessful, despite removing the guide catheter and using the 6-Fr sheath. A Xience 2.75 x18 mm stent was then placed inside the proximal right posterior tibial artery lesion and deployed at 12 atmospheres for 30 seconds. A Xience 4.0 x 18 mm stent was placed inside the right peroneal artery lesion and deployed at 10 atmospheres for 20 seconds. A 2.5 x 15 mm balloon was used for post stent deployment dilation in the right posterior tibial artery. It was inflated up to 8 atmospheres. An Inpact Admiral 5 x 40 drug coated balloon was placed at the distal right popliteal artery and cover the proximal portion of the right tibial peroneal branch. It was inflated to 8 atmospheres for 3 minutes. Final angiogram was obtained. Left femoral angiogram was performed before sheath removal. Hemostasis was achieved by using a Perclose device. The patient tolerated the procedure well. He was transferred to [facility] in good condition. TOTAL CONTRAST USED: 100 mL. FLUOROSCOPY TIME: 7.1 minutes. RESULTS: 1. Successful balloon angioplasty and stenting to the right posterior tibial artery lesion to achieve an excellent angiographic result. 2. Successful balloon angioplasty and stenting to the right peroneal artery lesion to achieve an excellent angiographic result. 3. Successful drug-coated balloon angioplasty to the distal right popliteal artery and proximal right tibioperoneal trunk to achieve an excellent angiographic result. CHENTED
[2016-12-18] MEDS: Insulin LISPRO 300 Unit/3 mL Inj SUBQ SCH ×3 (13:37→21:47)
[2016-12-18] MEDS ORDERED: 0.9% Sodium Chloride 1,000 ML IV PRN (14:03)
[2016-12-18] MEDS ORDERED: 0.9% Sodium Chloride 250 ML IV PRN (14:03)
[2016-12-18] MEDS ORDERED: Atropine 1 mg/10 mL (Code) Syringe IVPUSH PRN (14:05)
[2016-12-18] MEDS ORDERED: Ondansetron 2 mg/mL 2 mL Inj IVPUSH PRN (14:05)
--- NOTE | 2016-12-18 14:36 | NUR ---
Received/Recovery/O2 Received from medical lab assistant at 1220. VSS. Denies pain. Tele SR. Left groin with scant serosanguineous under dressing. No hematoma. PT dopplerable. Taking po well. After lunch stated felt SOB. No dyspnea noted and SPO2 98%. O2 placed at 2L BNC. Pt. to transfer to [facility] after immediate recovery. Report called to Sheeba Caraballo RN. Awaiting room cleaning.
--- NOTE | 2016-12-18 15:20 | NUR ---
Transfer No change in assessment. States SOB resolved. Transported to 2004 via bed at 1505 in no distress. Bedside check done. Dai Patterson RN on previous floor notified of room change so belongings and meds can be transported.
--- NOTE | 2016-12-18 15:27 | NUR ---
Admit to PCC Pt admitted to PCC from [facility] who had originally been on [facility] room # 1023 we believe. Left groin site is soft and non tender, minimal oozing unchanged from [facility]. Belonging still down stairs will go down after them. Vitals stable, tele placed SR 70'2, A&Ox3. Bedrest till 182, Fluids running at 100mls/hr till 2300. Oriented to room and call light. Will continue to monitor. Addendum: 12/18/16 at 1537 by FERNANDO GILLIAM RN Belongings and medications from [facility] unit sent up for 2004. ANALYST PROGRAMMER brought up belongings. Medmario friedman. Receiving AYSHA aware.
--- NOTE | 2016-12-18 18:48 | PCM.PNMED ---
Subjective Date of Service Dec 18, 2016 Subjective Pt going for Revascularization with Dr. Arcos. Exam Vital Signs Vital Sign - Last Date Time Temp Pulse Resp B/P Pulse Ox O2 Delivery O2 Flow Rate FiO2 12/18/16 13:30 69 18 126/64 12/18/16 13:30 95 Room Air 12/18/16 07:55 36.6 Intake and Output 12/17/16 12/17/16 12/18/16 Cumulative From/Thru 15:00 23:00 07:00 12/15/16 16:00 - 12/18/16 06:26 Intake Total 957 ml 752 ml 2251 ml Output Total 1000 ml 1175 ml 4650 ml Balance -43 ml -423 ml -2399 ml Intake Oral 877 ml 400 ml 1677 ml IV Total 80 ml 352 ml 574 ml Output Urine Total 1000 ml 1175 ml 4650 ml # Voids 1 # Bowel Movements 1 0 2 Exam Gen: NAD, AOx3. HEENT: NCAT, PERRLA, EOMI, MMM, sclera anicteric. Neck: Soft, supple, symmetrical, no thyromegaly/JVD/LAD. Resp: CTAB, no R/R/W. CV: RRR, nl S1/S2, no M/R/G, Abd: Soft, (+) BS, no guarding/rebound/organomegaly. Ext: b/l edema. RLE- Dorsalis pedis and posterior tibialis arteries are nonpalpable. Skin- Left Foot- ulcerations, left foot, closed. Benign. Right Foot- Ulceration. foul-smelling black eschar on the plantar aspect of the right heel which extends both medially and laterally. It measures approximately 7 x 8 cm. 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 - Based on December 05 wound culture at [facility] showing Proteus vulgaris, Providencia rettgeri and Morganella Morganii. Zosyn should provide adequate coverage so we will continue this - Wound nurse evaluated. - Podiatry Consulted- Dr. Princess Adam, appreciate recs. s/p debridement of the ulceration on 12/17 by Podiatry. prior to vascular intervention. - Podiatry will eval over next few days and pt may need BKA. - Continue IV morphine for pain control. # Peripheral vascular disease - Angiogram here on December 09 showed: Patent right distal superficial femoral artery stent. Severe 75% distal [id number] right popliteal artery stenosis. Severe stenosis of the origin of the right popliteal artery and right posterior tibial artery. This apparently was done after Doppler at [facility] November 27 felt right posterior tibial artery was occluded - Vascular procedure by Dr. Armstrong December 18. # Diabetes mellitus - Difficult to tell what insulin he is actually taking home - We will continue him with Lantus 30 mg at bedtime and the high-dose lispro sliding scale - He refuses a diabetic or heart healthy diet and therefore was placed on a general diet # Chronic anticoagulation with warfarin for history of DVT and pulmonary embolus - We will hold warfarin due to planned vascular procedure on December 18 - Started on therapeutic Lovenox but hold 12 hours prior to procedure. d/w Vascular about resuming. # Hypertension and hyperlipidemia - Continue usual medications which appear to be atorvastatin, fenofibrate, and amlodipine # Systolic heart murmur - It sounds like an echocardiogram might have been suggested to him but he did not want to do it or never got around to Dispo- will be going to SNF pending resolution of medical issues. Will need new order. Pain Evaluation: Adequate Pain Control VTE Mechanical Devices: Venous Foot Pump Jermaine Rose MD Dec 18, 2016 14:21
[2016-12-18] MEDS: Insulin GLARgine 100 Unit/mL Syringe SUBQ SCH (21:46)
--- NOTE | 2016-12-18 23:46 | PROG NOTE ---
[address] [address] PROGRESS NOTE PATIENT: KENNETH WITT : 1950 MR#: [id number] ADMIT: 12/15/2016 JOB ID: [id number] DATE: 12/18/2016 The patient is seen for infected right heel. The patient denies any pain in her foot, fever, chills. He underwent a vascular procedure this morning which he says went well. He is, however, tired. He is not having problems with the IV antibiotics. PHYSICAL EXAMINATION: Blood pressure 128/75, pulse 74, respiratory rate 16, temperature 36.5, pulse oximetry 98% on room air. Lower extremity exam: Dressing intact with moderate amount of serosanguineous and yellow drainage. There is odor to the wound, however, this is decreased from yesterday. There is also decreased erythema and swelling along the lateral ankle and heel. The calcaneus and plantar fascia is visible within the wound base, however, it appears to be hard with palpation. There is brown, discolored, necrotic and friable tissue circumferentially around the wound, however, this is decreased from yesterday. The plantar fascia itself is desiccated in some portions and yellowish brown discolored. His pulses are nonpalpable, however, has increased temperature around the heel and midfoot area. Neurovascular status intact to all toes of the right foot. LABORATORY DATA: WBC 13.9, hemoglobin 10.6, hematocrit 33.6, platelets 516, neutrophils 55.1. Sodium 137, potassium 4.5, chloride 100, carbon dioxide 20, BUN 41, creatinine 2.03, estimated GFR of 35, glucose 217, calcium 8.8. ASSESSMENT/PLAN: 1. Cellulitis with gangrene, right foot. The cellulitis appears to be resolving with the IV antibiotics and debridement. His white count is improved today. Recommend continuing with the current IV antibiotics. 2. Diabetic neuropathic gangrenous ulcer. I debrided the necrotic tissue within the wound base down to the calcaneal bone. It is difficult to assess so early on whether or not the bone is still viable, but there are certain portions of the bone which appear to be desiccated. I excised some of the necrotic plantar fascial tissue using an iris scissor, 10 blade and 11 blade. I dressed the wound using Hydrogel today to try to keep the bone and ligamentous and soft tissue structures moist. I will continue to do sequential debridement of necrotic tissue which is present within the wound base. If the bone is necrotic, then I would recommend a below-knee amputation. I will get a better sense of this over the next few days. The ulceration was dressed using Hydrogel, 4 x 4 gauze, ABD, Kerlix, and an Colin wrap. The patient tolerated the procedure well. Hemostasis was achieved with pressure. 3. Peripheral vascular disease. I spoke to Dr. Cash who states that he was successful in angioplasty and stenting of the right posterior tibial artery, right peroneal artery as well as the right popliteal artery and proximal right tibioperoneal trunk. I discussed with the patient the importance of not smoking to prevent the reblockage to his arteries. The patient states that he has stopped smoking and has not had the urge to smoke since he was hospitalized this visit. 4. Type 2 diabetes with peripheral neuropathy. He also has history of uncontrolled diabetes, and I explained to him the importance of having his blood sugars under control to maximize his chance of healing and prevent worsening infection.
[2016-12-19] VITALS (8 sets, daily range): BP systolic 101–149; BP diastolic 67–84; PULSE 77–90; RESP 16–22; O2SAT 96–99
[2016-12-19] MEDS: Piperacillin-Tazo 3.375 Gm Inj 3.375 GM in Dextrose 5% Minibag Plus 50 ML IV SCH ×3 (00:13→17:45)
[2016-12-19] MEDS: Sodium Chloride LOK Flush 10 mL Syringe IVFLUSH SCH ×6 (00:13→17:45)
--- NOTE | 2016-12-19 00:17 | NUR ---
Matthews Matthews dc'd at 0000 per provider order. Urinal at bedside, pt familiar with use. Will reassess at 0400.
[2016-12-19 02:49] LABS: Mean Corpuscular Hemoglobin 25.6 pg (27.0-35.0); Mean Corpuscular Volume 82.5 fL (81-100)
--- NOTE | 2016-12-19 03:59 | NUR ---
Groin/GI/tele/wound/mood L groin site soft, non-tender. Minimal bloody drainage as reported by day shift. Cassie Fried, pt voiding appropriately, denies urgency or discomfort. Sinus rhythm 60's. L foot dressing changed by this brief writer. Bloody drainage with odor noted. Pt agitated at the beginning of the shift, responded well to active listening and clustered care. Care continues. Addendum: 12/19/16 at 0610 by COCO STEWART RN CORRECTION R foot dressing was changed. L foot dressing CDI.
[2016-12-19] MEDS: Insulin LISPRO 300 Unit/3 mL Inj SUBQ SCH ×4 (09:05→22:00)
--- NOTE | 2016-12-19 10:35 | NUR ---
Social Work: Multidisciplinary Rounds/Continued Discharge Planning D: Pt discussed in MD rounds. Pt is wanting to leave however ID recommendations for IV ABX have not yet been made. Pt is agreeable to stay through this afternoon so that outpatient IV ABX can be arranged. Pt is adamantly declining SNF. CALCULATION REVIEWER met with the patient at bedside to confirm discharge plan. Pt states that he "will absolutely not go to a [facility]." Pt agrees that he will meet with Dr. Urena today and wait for outpatient IV ABX to be scheduled. Pt's preference is to receive these medications at [facility]. Pt states he has done this multiple times and it has never been a problem. Pt states that he drives and can get himself to these appointments daily. Pt is declining home health and states that he is not home bound. A: Pt who is declining SNF and home health. P: Awaiting ID MD recommendations for IV ABX; CALCULATION REVIEWER will arrange for outpatient IV ABX once recs and order received. EMMETT Sauceda Addendum: 12/19/16 at 1502 by SOINA TRACEY SS Order received to arrange for outpatient IV ABX. CALCULATION REVIEWER acknowledged order and spoke with MD about arranging IV ABX. Pt does not have an accepting doctor at [facility]. Pt's PCP is Nida Garza. CALCULATION REVIEWER spoke with her office; she is not on service until Thursday. On-call MD is Dr. Smalls who can be reached at [phone]. Attending MD has spoken with Dr. Smalls who will manage and follow pt's IV ABX as an outpatient until Dr. Garza can assume care. CALCULATION REVIEWER requested MD verify with ID what specific IV ABX schedule, dosing and frequency will be. t/c to the [facility]. CALCULATION REVIEWER left message for the tank hoop bender to arrange for this. CALCULATION REVIEWER met with pt at bedside. Pt is agreeable to stay one more night so that OP IV ABX can be arranged.
--- NOTE | 2016-12-19 13:30 | NUR ---
Off Unit Off unit to PICC suite for PICC placement Addendum: 12/19/16 at 1842 by CINDY HAYES RN Returned to Unit [facility] singlelumen PICC on L upper arm. PICC line currently infusing zosyn.
--- NOTE | 2016-12-19 13:33 | CONS ---
[address] [address] CONSULTATION REPORT PATIENT: KENNETH WITT : 1950 MR#: [id number] ADMIT: 12/15/2016 JOB ID: [id number] CORRECTED REPORT: DATE OF SERVICE: 12/19/[address] Adam for this timely consult. REASON FOR CONSULT: Severe diabetic foot ulcer with exposed calcaneus. HISTORY OF PRESENT ILLNESS: The patient is a 66-year-old gentleman with longstanding diabetic foot ulcers. He is a long-term smoker with poorly controlled diabetes and has been a frequent visitor to the [facility] over the years. The patient overall is not a very good historian and we have somewhat incomplete records, but he states he has had a worsening ulcer over his right foot and especially his right heel which has gone on apparently for months, if not years. He reports recently this has been worse and for that reason, he was sent from the [facility] to this hospital to see if revascularization might improve wound healing. Dr. Romero of our cardiology department yesterday performed an interventional stent. The procedure yesterday included a balloon angioplasty and stenting to the right posterior tibial artery as well as the right peroneal artery. Following the procedure, there was increased blood flow to the right lower extremity. The patient was evaluated by Dr. Adam here at the hospital as well and localized debridement of the right heel was done and it was obvious that there is exposed calcaneal bone. In fact, most of the calcaneus was exposed. At this point, ID consultation is requested regarding optimal antibiotic management considering the cultures that were obtained prior to his transfer at [place]. The patient is quite angry this morning. He tells us that he is prepared to leave the hospital at any time and this could be against medical advice, if that is the way that it works out. He states that he would prefer to get his wound management and wound care in [place] and that he can arrange for IV antibiotics to be given once a day at the [facility] in [place]. He provided me with the name of his internists whom I have tried to call this morning but so far have been unsuccessful. Today, the patient states he has no fevers, chills, or sweats. He says he feels basically fine. No cough, shortness of breath. No GI symptoms. He has really minimal pain if any around his right heel. He says he can get around on his right foot despite the fact that the heel is essentially exposed at this point. He says he has some neuropathy but not too severe by his report. PAST MEDICAL HISTORY: 1. Diabetes mellitus. 2. Peripheral vascular disease status post stenting yesterday in the right lower extremity. 3. History of pulmonary embolism with chronic anticoagulation. 4. Chronic renal insufficiency. 5. Recurrent severe diabetic foot infection. SOCIAL HISTORY: The patient reports he quit smoking last week. He does not consume alcohol excessively by his report. He is currently living at [facility] by himself but he gets some help from his sister. His parents both within the last year and a half and he has never and has no children. FAMILY HISTORY: Negative for tuberculosis and in first- and second-degree relatives. REVIEW OF SYSTEMS: Was done. No significant headache. No sore throat or cough. No chest pain, nausea, vomiting, or diarrhea. He reports no dysuria or urgency. Says he has little or no pain in either of his feet and that he can ambulate. Remainder of the review of systems negative. PHYSICAL EXAMINATION: Reveals a modestly obese gentleman. He is 190 cm tall, 109 kg for a BMI of exactly 30. He is awake, alert, conversational, but clearly appears somewhat depressed and is angry. His head without trauma. Eyes without conjunctivitis or scleral icterus. Nose appears normal. Oral cavity without thrush or pharyngitis. Neck without adenopathy or JVD. Lungs relatively clear anteriorly. Cardiac tones: Regular rate and rhythm today without significant murmur. The abdomen is soft and nontender without organomegaly. There is no suprapubic fullness. He does not have a Matthews. Penis and scrotum appear normal. No inguinal adenopathy. The lower extremities are notable for venous stasis changes, much more notable on the right than the left. Both feet have diminished pulses but there are better posterior tibial pulses on the right, status post revascularization yesterday. They are quite diminished on the left. Both feet have delayed capillary refill. Both feet have plantar calluses, which are notable, and both feet are somewhat cool to the touch, perhaps the right a little bit worse than the left. The extensive dressings were removed and we examined the wounds with the nursing staff as well as Lyle Romo of the wound management team. The patient's right calcaneus is completely exposed and appears even a bit desiccated. There is some degree of surrounding inflammation with some bloody discharge but no obvious purulence. The patient has much diminished sensation in both lower extremities but he can move them well. LABORATORIES: Include white count 15,000, which is unchanged during his four days here, 517,000 platelets. Creatinine 1.87. No CRP or sed rate has been done. INR is 2. Urinalysis without white cells. We do not have micro available here but we do have a report from 10 days ago at [place] when a wound culture was done of the right heel. It yielded Morganella and Providencia. Both these organisms are fairly resistant with the best susceptibilities being for Zosyn and the carbapenem. Both are sensitive though to third and fourth generation cephalosporins. There are no available oral agents though one could consider conceivably cefdinir as both these organisms are sensitive to third generation cephalosporins. IMPRESSION: This is an extremely difficult case. The patient is ordinarily followed at [place] and is not happy about being here. He plans to be discharged either against medical advice or in the usual fashion later today. His plan is to continue wound care in [place] and to get some intravenous antibiotics daily in the [facility]. It is not clear to me if any of this has been set up. Likewise, I am unable to reach his primary care doctor, Dr. Nida Garza, by telephone. The patient believes his right foot can and will be salvaged. To what degree these gram negative rods are causing infection is unclear to me. The patient has received a wide variety of antibiotics and in my review of the notes from the [facility] it appears just recently he has had both quinolones and Augmentin. The patient tells me he has had IV antibiotics in the past but it is not clear what or when these were given. At this point, optimal management would probably include either of a BKA as a more rapid solution or an attempt to salvage his foot and heel. The salvage attempt necessitate revascularization, which has already been done, plus prolonged broad-spectrum antibiotics aimed at these gram negative rods as well as anaerobes and MSSA which we have not cultured but which would not be surprising in this milieu. In addition to long-term IV antibiotics via PICC line the patient would need meticulous wound care and eventually probably some skin graft or flap to cover his very exposed calcaneus. This is at variance with the patient's plans apparently as he wants to go home and plans just take himself back and forth daily to the [facility] for daily IV antibiotic as well as some wound dressings in the [facility] which is near the [facility] for infusions. Over an hour was spent trying to coordinate care with this patient. I have tried to reach out to his painter ski edge but have not been able to reach her. Additionally I have spoken to Lyle Romo and reviewed the case at the bedside with him. I have also had a long conversation with Dr. Adam about what she would consider optimum management in this situation. At this point, the plans seem inchoate and I am uncertain exactly what my role would be here in terms of starting this patient on IV antibiotics if he in fact does not intend to return to this medical center. RECOMMENDATIONS: 1. If an oral selection is needed to try and at least control the local infection with these organisms and I think cefdinir would be the only option in a dose of 300 mg p.o. b.i.d. for probably 10 days or so. This would be completely inadequate to treat what is almost certainly osteomyelitis. 2. If our plan is to treat osteo with a multi-faceted approach then the patient will need to agree to frequent wound changes and perhaps even just admission to a longterm facility to facilitate his wound care and keep him off the foot. In addition, he would need six weeks of IV antibiotics. One easy way to do this would be with ertapenem and I think I would use a dose of 2 g a day for osteomyelitis as a least one article suggested that is more likely to work for osteo than the 1 g a day dose. The alternative would be to use ceftriaxone which would also allow once daily dosing in a dose of 2 g a day. Other options here would include 4th generation cephalosporins, such as cefepime or perhaps Zosyn, but these would require more frequent dosing and would not be amenable to once a day therapies. 3. I am holding off on writing any home IV orders as it is unclear who would be following the patient and where he would receive the IV infusions. I can be contacted by telephone during the day to help organize this but I am reluctant to put a PICC line in or commit him to a long course of antibiotics without knowledge as to if this is realistic in terms of saving his foot and without knowing who will be following the PICC line, the administration of the antibiotics and the laboratory studies as the patient wants to receive all care in [place]. ADDITIONAL INFORMATION: Recall that this is a patient I saw earlier today as a consultation. It was an extremely complicated consultation in a patient who is usually followed in [place] who had a really devitalized heel which was largely debrided away and he is left with an open calcaneus which is a major problem and obviously he has osteomyelitis. Earlier today, it was very unclear who would be following the patient and where and we have been trying to make arrangements through the day. I have just now been discussing this case again and have discovered that his primary physician, Dr. Nida Garza, and her associates in [place] are willing to provide the IV antibiotics the patient is requested to be given in [place]. We are trying to finalize these arrangements. My recommendations then would be to use ertapenem in a dose of 2 g rather than 1 g, 2 g IV q.24 hours with the plan to go for roughly six weeks. This would require a PICC line which we will insert here, as well as weekly labs which I understand Dr. Garza and her associates will be following. I would recommend that a CBC and CMP as well as a CRP be checked every week. The reason I chose ertapenem was that the patient has grown a variety of organisms from this foot including recently Morganella and Providencia, which are very sensitive to carbapenems. It also has the advantage of providing some additional gram-negative as well as gram-positive and anaerobic activity. Perhaps the main argument for ertapenem is it can be given once a day as the patient has indicated he would like to come and go to the infusion area at the [facility] which he states he has used in the past. As I noted this morning, the patient is quite anxious to leave and is angry about any delays in his discharge. He wants to get out as soon as possible and to receive these outpatient infusions on a daily basis. Note that to have any chance of success, he will have to be closely followed by wound management as well as Podiatry, and even with the best of care this may lead to a BKA. The patient is aware of this. Addenda added by NAILA 12/22/16 at 9:47am
[2016-12-19] MEDS ORDERED: Sodium Chloride LOK Flush 10 mL Syringe IVFLUSH PRN ×2 (14:20)
--- NOTE | 2016-12-19 15:50 | NUR ---
Called and left message for Nkcehi at [facility] [phone], letting her know I need to coordinate getting a patient in for outpatient infusions. This is second call made and message left. Updated WOOD MECHANIST
--- NOTE | 2016-12-19 16:15 | PCM.PNMED ---
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 Overnight: No acute events. Today: The patient is eager to go home but is willing to stay to get his PICC line placed and continue with IV antibiotics. He states that his leg is much better after the stent. The remainder of review of systems is negative except as noted above. Exam Vital Signs Vital Sign - Last Date Time Temp Pulse Resp B/P Pulse Ox O2 Delivery O2 Flow Rate FiO2 12/19/16 12:22 37.0 84 16 119/84 99 Room Air Intake and Output 12/18/16 12/18/16 12/19/16 Cumulative From/Thru 15:00 23:00 07:00 12/15/16 16:00 - 12/19/16 06:33 Intake Total 1000 ml 878 ml 4129 ml Output Total 1000 ml 1850 ml 7500 ml Balance 0 ml -972 ml -3371 ml Intake Oral 200 ml 1877 ml IV Total 1000 ml 678 ml 2252 ml Output Urine Total 1000 ml 1850 ml 7500 ml # Voids 1 # Bowel Movements 2 Exam Gen: NAD, AOx3. HEENT: NCAT, PERRLA, EOMI, sclera anicteric. Neck: Soft, supple, symmetrical, no thyromegaly/JVD/LAD. Resp: CTAB, no R/R/W. CV: RRR, nl S1/S2, no M/R/G, Abd: Soft, (+) BS, no guarding/rebound/organomegaly. Ext: b/l edema. RLE- Dorsalis pedis and posterior tibialis arteries are now palpable. Left Foot- ulcerations, left foot, closed. Benign. Right Foot- Ulceration. foul-smelling black eschar on the plantar aspect of the right heel which extends both medially and laterally. It measures approximately 7 x 8 cm. 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 Cellulitis with gangrene, right foot secondary to Severe PVD and Poorly controlled diabetes. - Based on December 05 wound culture at [facility] showing Proteus vulgaris, Providencia rettgeri and Morganella Morganii. Zosyn should provide adequate coverage so we will continue this - Wound nurse evaluated. - Podiatry Consulted- Dr. Princess Adam, appreciate recs. s/p debridement of the ulceration on 12/17 by Podiatry. prior to vascular intervention. - Podiatry will eval over next few days and pt may need BKA. - Continue IV morphine for pain control. - ID consulted appreciate input. Patient will need IV antibiotics for 4-6 weeks. Peripheral vascular disease status post stenting, improved - Angiogram here on December 09 showed: Patent right distal superficial femoral artery stent. Severe 75% distal [id number] right popliteal artery stenosis. Severe stenosis of the origin of the right popliteal artery and right posterior tibial artery. This apparently was done after Doppler at [facility] November 27 felt right posterior tibial artery was occluded Diabetes mellitus - Difficult to tell what insulin he is actually taking home - We will continue him with Lantus 30 mg at bedtime and the high-dose lispro sliding scale - He refuses a diabetic or heart healthy diet and therefore was placed on a general diet Chronic anticoagulation with warfarin for history of DVT and pulmonary embolus - We will hold warfarin due to planned vascular procedure on December 18 - Started on therapeutic Lovenox but hold 12 hours prior to procedure. d/w Vascular about resuming. Hypertension and hyperlipidemia - Continue usual medications which appear to be atorvastatin, fenofibrate, and amlodipine Systolic heart murmur - It sounds like an echocardiogram might have been suggested to him but he did not want to do it or never got around to Disposition: Discharge to home tomorrow with IV antibiotics for 4-6 weeks. VTE Mechanical Devices: Venous Foot Pump Attending Statement The patient was seen and examined with staff. Agree with all attached documentation. Maranda Monaco DO Dec 19, 2016 16:05 Anatoly Vizcaino MD Dec 19, 2016 17:50
--- NOTE | 2016-12-19 17:57 | DRSVH ---
PROCEDURE: X-RAY PICC LINE PLACEMENT BY NURSE ([id number]) INDICATIONS: extended IV ANTIBIOTICS COMPARISON: [facility], , CHEST 2 VIEW, 11/15/2016, 12:50. FINDINGS: PICC was placed by the intravenous therapy team from the left side. Fluoroscopic spot trina m demonstrates tip of PICC at the cavoatrial junction. IMPRESSION: Tip of PICC extends to the cavoatrial junction. Dictated by: Nawaf Byrnes M.D. on 12/19/2016 at 17:55 Approved by: Nawaf Byrnes M.D. on 12/19/2016 at 17:56
[2016-12-19] MEDS ORDERED: Amiodarone 150 mg/100 mL D5W 150 MG in IV Premix 1 EACH IV PRN (20:05)
[2016-12-19] MEDS ORDERED: Amiodarone 360 mg/200 mL D5W 360 MG, Filter, Taxol 14256-28 1 EACH in IV Premix 1 EACH IV PRN (20:05)
[2016-12-19 22:03] LABS: Magnesium 2.1 mg/dL (1.6-2.6); Phosphorus 2.6 mg/dL (2.5-4.9)
[2016-12-19] MEDS: MeTOProlol XL 25 mg ER24 Tablet PO SCH (22:27)
[2016-12-19] MEDS: Insulin GLARgine 100 Unit/mL Syringe SUBQ SCH (22:35)
[2016-12-20] MEDS: Piperacillin-Tazo 3.375 Gm Inj 3.375 GM in Dextrose 5% Minibag Plus 50 ML IV SCH ×2 (00:57→09:12)
--- NOTE | 2016-12-20 02:15 | PROG NOTE ---
[address] [address] PROGRESS NOTE PATIENT: KENNETH WITT : 1950 MR#: [id number] ADMIT: 12/15/2016 JOB ID: [id number] DATE: 12/19/2016 SUBJECTIVE: The patient is seen for gangrene right foot. He denies any pain in foot, fever or chills. When I enter the room he was quite hostile towards me and this was due to his impression that I "wanted to cut his leg off." He states he just wants to be discharged so he can go home and follow up at the [facility] to get IV [facility]. PHYSICAL EXAMINATION: Blood pressure 102/67, pulse 79, respiratory rate 22 temp 37.1, pulse oximetry 98% on room air. Lower extremity exam: Dressing intact with moderate amount of serosanguineous and yellow drainage. There is odor to the wound and this is approximately the same as yesterday. There is the calcaneus exposed within the wound base and plantar fascia overlying the bone which is desiccated in appearance. There is necrotic tissue circumferentially around the margins and within the base of the wound. The intact surrounding still however is warm to touch. There is decreased erythema and swelling around the lateral rear foot and there is no erythema swelling noted on the medial side. The amount of necrotic tissue, however is decreased from yesterday. LABORATORY STUDIES: WBC 15.6 hemoglobin 10.4, hematocrit 33.5, platelets 517. Sodium 136, potassium 4.6, chloride 101, carbon dioxide 20, BUN 38, creatinine 1.87. Estimated GFR of 39. Glucose 227. ASSESSMENT/PLAN: 1. Gangrene right heel. I explained to the patient that my goal was not cut off his leg, but it was explained to him that the below-knee amputation would be a probability due to the extensive necrosis of the soft tissue structures and possibly the heel bone. I explained to him that my goal was actually to try to keep his foot if possible. However, unfortunately the patient did not interpret my previous conversations in that away. The patient calmed down and allowed me to debride his ulceration this evening. I used 6 cc of lidocaine 1% plain, locally around the ulcer site. I spent approximately 1 hour debriding the necrotic soft tissue, plantar fascia and periosteum which was desiccated or brown discolor. It was noted that there was some pustular discharge underlying the plantar fascia, as well as the spring ligament. There was a small amount of bleeding and hemostasis was achieved with pressure. A compressive dressing was also applied. The ulceration was dressed using Hydrogel, AND, 4 x 4 gauze, Kerlix and an Colin wrap. The patient tolerated the procedure well. The vascular status intact was intact to all toes of the right foot. The patient adamantly refuses a below-knee amputation at this time and he is to follow with Dr. Lincoln and at [facility] for further care. I also discussed with patient the importance of going to a senior living facility rather than home. The patient has a history of poorly controlled blood sugars which are essential to the patient's recovery and already the chances of the wound healing with such extensive soft tissue necrosis as well as there is having the majority of his calcaneus exposed, is not a easy condition to overcome as it is. He states he will go to the [facility] in [place] for dressing changes as well. 2. Cellulitis with abscess right foot. I debrided the plantar fascia ligament and it was noted that there was pustular discharge underneath the ligament as well as under the spring ligament. The spring ligament also looked brown discolored and desiccated. I excised the portions which were unhealthy and drained any pustular discharge within this area. Dr. Urena was consulted and I would defer to his recommendations. He will need long-term IV antibiotics. He may already have osteomyelitis at this time, although the exposed bone of the calcaneus was still hard to palpation. He is follow up at [facility] for further management. 3. Type 2 diabetes, uncontrolled. The patient appears to be in denial but his uncontrolled diabetes contributed to the problem. Part of his frustrations that he stated today is that people accuse him that his being diabetic was part of the problem; however, what he does not appear to understand is that his uncontrolled diabetes is directly responsible for the situation that he is in today. I have explained to him numerous times in the past and again recently during this hospitalization that his blood sugars being as elevated and uncontrolled as they are, increases the area of infection as well as prevents his healing capabilities. 4. Peripheral vascular disease. His blood flow to his heel has improved as it is warm to touch and there is bleeding upon debridement of the soft tissue. The patient states that he will no longer smoking and this should also help with maintaining his circulation to his right foot. The patient is to be discharged tomorrow home and is to follow with the [facility].
--- NOTE | 2016-12-20 04:14 | NUR ---
Foot dressing/Blood sugar/Tele/PICC PICC was leaking , called IV therapy to assess dressing , was re-done, Left foot dressing was leaking blood , re-enforced w Gauze and tape per Wound Care instructions. Blood sugar 156, no sliding scale @ HS, Had repeated runs of V-Tach , called Resident, ordered stat EKG, Electrolyte labs , PRN orders placed for Amiodarone. Converted after 1999 to SR . Pt intends to DC to out patient status [facility] on 12/20/16 Tele: SR 70's when not in V-Tach Addendum: 12/20/16 at 0423 by YUNI AMARO RN Groin access Groin sites unremarkable , CDI, no S/S swelling , drainage , hematoma.
[2016-12-20 04:47] VITALS: BP 117/76; PULSE 75; RESP 16; O2SAT 98
[2016-12-20 05:14] VITALS: PULSE 78
[2016-12-20 08:34] VITALS: PULSE 73
[2016-12-20 09:05] VITALS: BP 118/66; PULSE 74; RESP 20; O2SAT 99
[2016-12-20] MEDS: Insulin LISPRO 300 Unit/3 mL Inj SUBQ SCH ×2 (09:13→12:41)
[2016-12-20] MEDS: MeTOProlol XL 25 mg ER24 Tablet PO SCH (09:15)
--- NOTE | 2016-12-20 10:20 | NUR ---
Social Work: Multidisciplinary Rounds/Readiness for Discharge D: [employer] received after hours telephone message from Nkechi at the Infusion Center at [facility]. She states that they are unable to get the patient on the schedule for this weekend due to the late hour. She states that they can accept the patient on Thursday morning pending orders, clinicals and a demographic facesheet be faxed to [phone]. Pt discussed in am rounds. Pt wishes to discharge today. [employer] informed MD of the IV ABX information. MD will write orders for the pt to receive his Thursday dose of abx at [facility] and then transfer care to the Infusion Center at [facility] on Thursday. [employer] met with the patient at bedside to review this discharge plan. Pt understands that he needs to come to [facility] for his dose of abx on Thursday and then will follow up with the Infusion Center on Thursday12/22/16. The patient states that he has been doing outpatient IV ABX on and off for five years and expresses no concerns about following up with [facility] on Thursday. [employer] has provided provider with an outpatient AB[place] order form for [facility] and has faxed Dr. Urena's IV ABX orders, clinicals and facesheet to [facility] ([phone]). Dr. Smalls and pt's PCP Nida Garza MD will be the managing providers with privileges at [facility]. A: Pt who is declining SNF and home health at this time. P: Anticipate pt to discharge home with follow up at [facility] on Thursday 12/21 for IV ABX and then follow up with [facility] on Thursday for the remaining IV ABX EMMETT Sauceda
--- NOTE | 2016-12-20 11:26 | DRSVH ---
PROCEDURE: X-RAY CHEST ONE VIEW ([id number]) INDICATIONS: line placement TECHNIQUE: One view of the chest was acquired. COMPARISON: [facility], CHEST 1 VIEW, 07/11/2016, 14:31. [facility], CHEST 1 VIEW, 02/20/2015, 15:30. [facility], CHEST 2 VIEW, 11/15/2016, 12:50. FINDINGS: Surgical changes and devices: The distal tip of the left PICC is not well characterized. Lungs and pleura: There is a questionable left hilar mass adjacent to the aortic arch. The lungs are otherwise clear. No pleural effusion or pneumothorax. Mediastinum: Mediastinal contours appear normal. Heart size is normal. Bones and chest wall: No suspicious bony lesions. Overlying soft tissues appear unremarkable. IMPRESSION: 1. Distal tip of the left PICC is not well characterized. Repeat study recommended if further charact erization is warranted. Coned-down mediastinal view may be helpful. 2. Questionable left hilar mass. Nonemergent, contrast enhanced CT of the chest is recommended to fur ther characterize this finding. Differential considerations include artifact from large pulmonary ves sels. Dictated by: Cheyenne Padilla M.D. on 12/20/2016 at 11:21 Approved by: Cheyenne Padilla M.D. on 12/20/2016 at 11:24
--- NOTE | 2016-12-20 11:50 | PCM.DIMED ---
Discharge Instructions Date of Service Dec 20, 2016 Dates of Hospitalization Dec 15, 2016 at 15:00 Discharge Diagnosis Discharge Diagnosis Cellulitis with gangrene, right foot secondary to Severe PVD. Peripheral vascular disease status post stenting, improved Diabetes mellitus 2, poorly controlled Chronic anticoagulation with warfarin for history of DVT and pulmonary embolus Hypertension and hyperlipidemia Systolic heart murmur - Diet Discharge Diet: Low fat, Low Sodium, Diabetic Activity Discharge Activity: Limited until seen by PCP Call your provider Call your provider for: Fever or Chills, Chest pain, Other Patient Instructions Patient Instructions He will go to the medical outpatient center at [facility] on ThursdayDecember 21 for IV antibiotics. He will go to the oncology infusion center in [place] for IV antibiotics once a day starting on December 22 She will go to wound care on Thursday morning to Attending's Statement Increased pain from feet. Discharge from foot wound. Bleeding from PICC line. Migration of PICC line. Anatoly Vizcaino MD Dec 20, 2016 11:50
[2016-12-20] MEDS ORDERED: HYDR2TAB27 PO (11:56)
[2016-12-20] MEDS ORDERED: ERTA1VIA2 IV (11:56)
[2016-12-20] MEDS ORDERED: LOSA25TA2 PO (11:56)
[2016-12-20] MEDS ORDERED: ASPI81TA3 PO (11:56)
[2016-12-20] MEDS ORDERED: METO25TA99 PO (11:56)
[2016-12-20 12:11] VITALS: BP 107/67; PULSE 77; RESP 14; O2SAT 99
--- NOTE | 2016-12-20 12:58 | NUR ---
Social Work: discharge D: Pt has active discharge orders. IV ABX orders faxed to [facility] and [facility] at [facility]. TAKER DOWN confirmed with [facility] that they have received the orders and have the patient on the schedule for 10:00am. TAKER DOWN informed bedside RN and pt of this. Copies of orders and discharge instructions on pt's chart. A: Pt who is declining home health and all other supportive services for discharge. P: pt to discharge home with outpatient IV ABX through [facility] on Thursday and then IV Abx [facility] on Thursday. EMMETT Sauceda
--- NOTE | 2016-12-20 14:07 | PCM.DC.MED ---
Discharge Summary Date of Service Dec 20, 2016 Dates of Hospitalization Date of Hospital Admission Dec 15, 2016 at 15:00 Date of Discharge: Dec 20, 2016 Providers: Admitting Physician: Omid Gold MD Primary Care Physician: Nida Garza MD Attending Physician: Anatoly Belcher MD Diagnosis at Time of Discharge Diagnosis at Time of Discharge Cellulitis with gangrene, right foot secondary to Severe PVD. Peripheral vascular disease status post stenting, improved Diabetes mellitus 2, poorly controlled Chronic anticoagulation with warfarin for history of DVT and pulmonary embolus Hypertension and hyperlipidemia Systolic heart murmur - Consultations Podiatry Infectious disease, Dr Urena. Procedures Invasive Procedures 12/18/2016 PATIENT PROFILE: The patient is a 66-year-old male with a history of uncontrolled diabetes, hypertension, hypercholesterolemia, nicotine addiction, severe obesity, and obstructive sleep apnea. He had a nonhealing ulcer of the right foot. PROCEDURE: 1. Conscious sedation for 3 hours and 7 minutes. 2. Vascular access from the left groin under ultrasound guidance. 3. Balloon angioplasty and stenting to the right posterior tibial artery. 4. Balloon angioplasty and stenting to the right peroneal artery. 5. Drug-coated balloon angioplasty to the distal right peroneal artery and proximal portion of the right tibioperoneal branch. VASCULAR CLOSURE DEVICE: Perclose. COMPLICATIONS: None. METHOD: Conscious sedation was achieved with IV Versed and IV fentanyl. An attempt to obtain vascular access from the right groin by antegrade approach under ultrasound guidance was unsuccessful due to his large body size. Vascular access was then obtained from the left groin by retrograde approach under ultrasound guidance by putting a 6-Belizean sheath. A 5-Belizean VCF catheter was used to get over the horn and directed a Glidewire into the right superficial femoral artery. This was exchanged over a [place] Advantage wire and a 4-Belizean slip cath into a 6-Belizean 70 cm Raabe sheath. Repeated doses of heparin were given in order to maintain ACT above 250. An 0.035 QuickCross catheter was placed at the right below-knee popliteal artery. Selective contralateral right popliteal angiogram was performed in the AP view and ROMANSH view. A Runthrough wire was placed inside the right posterior tibial artery. The Quick Cross catheter was then exchanged to a 6-Belizean multipurpose guide. A Command wire was placed inside the peroneal artery. The lesion in the right posterior tibial artery was predilated with a 2.0 x 15 mm balloon. The right peroneal artery lesion was predilated with a 3.0 x 15 mm balloon. An attempt to perform kissing stent to the peroneal and posterior tibial lesions was unsuccessful, despite removing the guide catheter and using the 6-Fr sheath. A Xience 2.75 x18 mm stent was then placed inside the proximal right posterior tibial artery lesion and deployed at 12 atmospheres for 30 seconds. A Xience 4.0 x 18 mm stent was placed inside the right peroneal artery lesion and deployed at 10 atmospheres for 20 seconds. A 2.5 x 15 mm balloon was used for post stent deployment dilation in the right posterior tibial artery. It was inflated up to 8 atmospheres. An Inpact Admiral 5 x 40 drug coated balloon was placed at the distal right popliteal artery and cover the proximal portion of the right tibial peroneal branch. It was inflated to 8 atmospheres for 3 minutes. Final angiogram was obtained. Left femoral angiogram was performed before sheath removal. Hemostasis was achieved by using a Perclose device. The patient tolerated the procedure well. He was transferred to [facility] in good condition. TOTAL CONTRAST USED: 100 mL. FLUOROSCOPY TIME: 7.1 minutes. RESULTS: 1. Successful balloon angioplasty and stenting to the right posterior tibial artery lesion to achieve an excellent angiographic result. 2. Successful balloon angioplasty and stenting to the right peroneal artery lesion to achieve an excellent angiographic result. 3. Successful drug-coated balloon angioplasty to the distal right popliteal artery and proximal right tibioperoneal trunk to achieve an excellent angiographic result. Brief History Patient states that his right heel wound is getting worse and gets infected. He was seen at the wound clinic at [facility] when they noted it to be worse the arranged for him to be admitted here so that could form of a vascular procedure on his right tibial or popliteal artery that had been planned for later this month. Patient had a wound culture that showed P.vulgaris. It is not clear if he was placed on antibiotic therapy for that. More recently he had been on Augmentin and then on December 05 a culture was done which showed Morganella morganii and providentia rettgeri. Augmentin was changed to Cefdinir. The wound clinic faxed these cultures over to us. He does have some erythema in the third way up the posterior calf but he says this is not recently changed. He is having more pain and she also has been using some old OxyContin. He did have episode of sweats about week ago but none more recently and no fever or chills. He does have a lot of drainage from the right heel but he is not sure that this is recently changed although he does think the odor is more foul. 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 Cellulitis with gangrene, right foot secondary to Severe PVD and Poorly controlled diabetes. - Based on December 05 wound culture at [facility] showing Proteus vulgaris, Providencia rettgeri and Morganella Morganii. Zosyn should provide adequate coverage so we will continue this - Wound nurse evaluated. - Podiatry Consulted- Dr. Princess Adam, appreciate recs. s/p debridement of the ulceration on 12/17 by Podiatry. prior to vascular intervention. - Podiatry will eval over next few days and pt may need BKA. - Continue IV morphine for pain control. - ID consulted appreciate input. Patient will need IV antibiotics for 4-6 weeks. Peripheral vascular disease status post stenting, improved - Angiogram here on December 09 showed: Patent right distal superficial femoral artery stent. Severe 75% distal [id number] right popliteal artery stenosis. Severe stenosis of the origin of the right popliteal artery and right posterior tibial artery. This apparently was done after Doppler at [facility] November 27 felt right posterior tibial artery was occluded Diabetes mellitus - Difficult to tell what insulin he is actually taking home - We will continue him with Lantus 30 mg at bedtime and the high-dose lispro sliding scale - He refuses a diabetic or heart healthy diet and therefore was placed on a general diet Chronic anticoagulation with warfarin for history of DVT and pulmonary embolus - We will hold warfarin due to planned vascular procedure on December 18 - Started on therapeutic Lovenox but hold 12 hours prior to procedure. d/w Vascular about resuming. Hypertension and hyperlipidemia - Continue usual medications which appear to be atorvastatin, fenofibrate, and amlodipine Systolic heart murmur - It sounds like an echocardiogram might have been suggested to him but he did not want to do it or never got around to Disposition: Discharge to home tomorrow with IV antibiotics for 4-6 weeks. Exam Vital Signs (Last) Date Time Temp Pulse Resp B/P Pulse Ox O2 Delivery O2 Flow Rate FiO2 12/20/16 12:11 36.8 77 14 107/67 99 Room Air Exam Patient was seen and examined on the day of discharge Test 12/15/16 17:01 12/15/16 18:22 12/15/16 19:05 12/18/16 05:40 Hemoglobin A1c 12.0% (4.8-5.6) Total Bilirubin 0.3mg/dL (0.0-1.2) Aspartate Amino Transf (AST/SGOT) 27U/L (0-50) Alanine Aminotransferase (ALT/SGPT) 16U/L (0-44) Alkaline Phosphatase 170U/L (25-160) Total Protein 7.0g/dL (6.4-8.4) Albumin 2.5g/dL (3.4-5.0) Urine Color Yellow (YELLOW) Urine Appearance Clear (CLEAR,HAZY) Urine pH 7.0 (5.0-8.0) Urine Specific [place] 1.010 (1.003-1.035) Urine Protein Negativemg/dL (NEG,TRACE) Urine Glucose (UA) Negativemg/dL (NEGATIVE) Urine Ketones Negativemg/dL (NEGATIVE) Urine Occult Blood Trace (NEGATIVE) Urine Nitrite Negative (NEGATIVE) Urine Bilirubin Negative (NEGATIVE) Urine Urobilinogen Normalmg/dL (NORMAL) Urine Leukocyte Esterase Negative (NEGATIVE) Urine RBC 0-2/hpf (0-2) Urine WBC 0-5/hpf (0-5) Urine Epithelial Cells None/hpf (NONE-MOD) Urine Crystals None seen (NONE SEEN) Urine Bacteria Few/hpf (NONE-FEW) Urine Hyaline Casts None/lpf (NONE) Urine Granular Casts None seen (NONE SEEN) Urine Waxy Casts None seen (NONE SEEN) Urine Red Blood Cell Casts None seen (NONE SEEN) Urine White Blood Cell Casts None seen (NONE SEEN) Urine Mucus None seen (None Seen) Urine Trichomonas None seen (NONE SEEN) Urine Yeast None (NONE SEEN) Urinalysis Comment None Urine Culture Reflexed Not indicated Prothrombin Time 21.4sec (8.1-12.5) Prothromb Time International Ratio 1.97ratio Neutrophils (%) (Auto) 55.1% (40-74) Lymphocytes (%) (Auto) 34.7% (14-46) Monocytes (%) (Auto) 6.3% (4-12) Eosinophils (%) (Auto) 1.7% (0-5) Basophils (%) (Auto) 0.3% (0-3) Test 12/19/16 02:30 12/19/16 21:20 12/20/16 05:15 White Blood Count 15.6th/mm3 (3.8-10.1) Red Blood Count 4.06mil/mm3 (4.40-5.80) Hemoglobin 10.4g/dL (13.8-17.2) Hematocrit 33.5% (41.0-50.0) Mean Corpuscular Volume 82.5fL (81-100) Mean Corpuscular Hemoglobin 25.6pg (27.0-35.0) Mean Corpuscular Hemoglobin Concent 31.0% (32.0-37.0) Red Cell Distribution Width 15.3% (12.3-15.4) Platelet Count 517bil/L (150-400) Phosphorus Level 2.6mg/dL (2.5-4.9) Magnesium Level 2.1mg/dL (1.6-2.6) Sodium Level 136mEq/L (134-144) Potassium Level 5.0mEq/L (3.5-5.2) Chloride Level 100mEq/L (97-108) Carbon Dioxide Level 22mmol/L (18-29) Blood Urea Nitrogen 37mg/dL (8-27) Creatinine 1.97mg/dL (0.76-1.27) Estimat Glomerular Filtration Rate 36mL/min (>59) Glucose Level 189mg/dL (60-99) Calcium Level 8.7mg/dL (8.5-10.1) Discharge Medications Discharge Medications Amlodipine (Amlodipine) 10 Mg Tablet 10 MG PO DAILY (Reported) Aspirin Chew (Aspirin Chew) 81 Mg Chew 81 MG PO DAILY Prescribed by: ANATOLY BELCHER MD Atorvastatin Calcium (Atorvastatin Calcium) 10 Mg Tablet 10 MG PO HS (Reported) Cholecalciferol (Vitamin D3) (Vitamin D3) 1,000 Unit Tab.chew 1,000 UNIT PO DAILY (Reported) Ertapenem Sodium (Invanz) 1 Gm Vial.port 1 GM IV DAILY Prescribed by: ANATOLY BELCHER MD Fenofibrate (Fenofibrate) 160 Mg Tablet 160 MG PO DAILY (Reported) Insulin Glargine (Lantus U100 Solostar Insulin Pen) 100 Unit/1 Ml Insuln.pen 1 UNIT SUBQ DIRECTED (Reported) Insulin Human Lispro (HumaLOG U100 Insulin Vial) 100 Unit/Ml Unit 1 UNIT SUBQ ASDIRECTED (Reported) Check blood sugars before meals and at bedtime. Use correction factor only before meals. Blood Sugar Lispro Correction: <151, 0 units; 151-175, 1 unit; 176-200, 2 units; 201-225, 3 units; 226-250, 4 units; 251-275, 5 units; 276-300 , 6 units; 301-325, 7 units; 326-350, 8 units; 351-375, 9 units; 376-400, 10 units; >400, 12 units. Losartan Potassium (Cozaar) 25 Mg Tablet 50 MG PO DAILY Prescribed by: ANATOLY BELCHER MD Metoprolol Succinate ER (Metoprolol Succinate ER) 25 Mg Tab.er.24h 25 MG PO BID Prescribed by: ANATOLY BELCHER MD Warfarin Sodium (Warfarin Sodium) 10 Mg Tablet 15 MG PO DAILY (Reported) As needed Hydromorphone (Dilaudid) 2 Mg Tablet 2-4 MG PO Q4H PRN PRN For Pain Prescribed by: ANATOLY BELCHER MD Followup Plan Disposition: Home Discharge Diet: Low fat, Low Sodium, Diabetic Discharge Activity: Limited until seen by PCP Patient Instructions He will go to the medical outpatient center at [facility] on ThursdayDecember 21 for IV antibiotics. He will go to the oncology infusion center in [place] for IV antibiotics once a day starting on December 22 She will go to wound care on Thursday morning to Time spent 60 minutes Anatoly Belcher MD Dec 20, 2016 14:07
--- NOTE | 2016-12-20 15:27 | NUR ---
D/C D/C to home. Op ABX set up for MOC for tomorrow and [facility]. PICC line in place. Dressing changed per Dr. Adam verbal instructions and sent instructions for dressing change tomorrow on MOC, pt also provided materials to reinforce dressing overnight if needed. Packet and RXs discussed and provided. Pt escorted off floor to his ride via w/c with all belongings.
[2016-12-21] MEDS ORDERED: Ertapenem Inj 1,000 MG in 0.9% Sodium Chloride 50 ML IV SCH (08:30)
== END 2016-12-20 14:18 | disposition home or self-care (01) | DRG 253 ==
LOC: OSC 15:00 → PCC 12-18 14:20
PROVIDERS: ADMIT Family Medicine; ATTEND Internal Medicine
PROC: 047R34Z Dilation of Right Posterior Tibial Artery with Drug-eluting Intraluminal Device, Percutaneous Approach (ICD-10-PCS; principal; 2016-12-18)
PROC: 047 Lower Arteries, Dilation (ICD-10-PCS; 2016-12-18)
PROC: 047M3Z1 Dilation of Right Popliteal Artery using Drug-Coated Balloon, Percutaneous Approach (ICD-10-PCS; 2016-12-18)
PROC: 0JBQ0ZZ Excision of Right Foot Subcutaneous Tissue and Fascia, Open Approach (ICD-10-PCS; 2016-12-18)
PROC: 0JDQ0ZZ Extraction of Right Foot Subcutaneous Tissue and Fascia, Open Approach (ICD-10-PCS; 2016-12-19)
DX: E11.52 Type 2 diabetes mellitus with diabetic peripheral angiopathy with gangrene (principal); M86.9 Osteomyelitis, unspecified; L97.414 Non-pressure chronic ulcer of right heel and midfoot with necrosis of bone; L03.115 Cellulitis of right lower limb; E11.621 Type 2 diabetes mellitus with foot ulcer; E11.69 Type 2 diabetes mellitus with other specified complication; E11.65 Type 2 diabetes mellitus with hyperglycemia; Z79.4 Long term (current) use of insulin; I10 Essential (primary) hypertension; E78.5 Hyperlipidemia, unspecified; I73.9 Peripheral vascular disease, unspecified; F17.210 Nicotine dependence, cigarettes, uncomplicated; Z86.718 Personal history of other venous thrombosis and embolism; Z79.01 Long term (current) use of anticoagulants; I77.1 Stricture of artery

== ENCOUNTER 2016-12-20 15:17 | Observation (INO) | payer MEDICARE ==
[~2016-12-20] VITALS: Ht 193 cm; Wt 128.7 kg
[~2016-12-20 15:17] MED LIST changes: +ASPI81TA3 PO; +ERTA1VIA2 IV; +HYDR2TAB27 PO; +LOSA25TA2 PO; +METO25TA99 PO
[2016-12-20 15:23] VITALS: BP 100/64; PULSE 74; RESP 10; O2SAT 94
[2016-12-20] MEDS ORDERED: 0.9% Sodium Chloride 1,000 ML IV ONE (15:37)
[2016-12-20 15:39] VITALS: BP 99/59; PULSE 74; RESP 14; O2SAT 96
[2016-12-20] MEDS ORDERED: Ondansetron 2 mg/mL 2 mL Inj ONE (15:52)
--- NOTE | 2016-12-20 15:55 | ED.REPORT ---
HPI-General Illness Date of Service Dec 20, 2016 ED Provider: Usama Cook Arpan FOSTER Pt is a 66 y/o male anticoagulated on Warfarin w/ a hx of HTN, hyperlipidemia, DM, severe PVD, bilateral nonhealing foot ulcers, hx of DVT and PE, presenting to the ED via EMS due to near-syncope which occurred prior to arrival. The patient was recently admitted to [facility] 12/15/16-12/20/16 and was discharged about 1 hour ago for infected chronic right heel wound. During that admission he was treated for cellulitis with gangrene of the right heel secondary to severe PVD. The patient had a balloon angioplasty and stent placement of the right posterior tibial artery, right peroneal artery, and proximal portion of the right tibioperoneal branch performed. He was discharged on Ertapenem once daily. The patient left the hospital and went to [facility] to do some shopping and when he stepped out of his vehicle he became dizzy, nauseous, and slumped over to the ground slowly without full loss of consciousness. When lying flat, his symptoms are resolved. Pt denies fever, chills, abdominal or chest pain, dyspnea, full syncope. He states his BP normally runs about 140 systolic. He takes Losartan, amlodipine, and Metoprolol for BP. He has experienced a similar episode in the past that was caused by excessive antihypertensive medications. His sister is not comfortable caring for him at home in this condition. Nursing Notes Stated Complaint: SYNCOPAL Chief Complaint: General Complaint Nursing Notes Reviewed: Yes Allergies: Coded Allergies: metformin (Unverified Allergy, Mild, 12/09/16) DIARRHEA oxycodone (Unverified Allergy, Mild, 12/09/16) Scheduled Amlodipine (Amlodipine) 10 Mg Tablet 10 MG PO DAILY Aspirin Chew (Aspirin Chew) 81 Mg Chew 81 MG PO DAILY Atorvastatin Calcium (Atorvastatin Calcium) 10 Mg Tablet 10 MG PO HS Cholecalciferol (Vitamin D3) (Vitamin D3) 1,000 Unit Tab.chew 1,000 UNIT PO DAILY Ertapenem Sodium (Invanz) 1 Gm Vial.port 1 GM IV DAILY Fenofibrate (Fenofibrate) 160 Mg Tablet 160 MG PO DAILY Insulin Glargine (Lantus U100 Solostar Insulin Pen) 100 Unit/1 Ml Insuln.pen 1 UNIT SUBQ DIRECTED Insulin Human Lispro (HumaLOG U100 Insulin Vial) 100 Unit/Ml Unit 1 UNIT SUBQ ASDIRECTED Check blood sugars before meals and at bedtime. Use correction factor only before meals. Blood Sugar Lispro Correction: <151, 0 units; 151-175, 1 unit; 176-200, 2 units; 201-225, 3 units; 226-250, 4 units; 251-275, 5 units; 276-300 , 6 units; 301-325, 7 units; 326-350, 8 units; 351-375, 9 units; 376-400, 10 units; >400, 12 units. Warfarin Sodium (Warfarin Sodium) 10 Mg Tablet 15 MG PO DAILY Scheduled PRN Hydromorphone (Dilaudid) 2 Mg Tablet 2-4 MG PO Q4H PRN PRN For Pain General Time Seen by MD: 15:27 Chief Complaint Other (near sync) Hx Obtained From: Patient, EMS Arrived By: Ambulance Sudden in Onset?: Yes Onset Occurred: Just prior to arrival Symptom Duration: Since onset Severity: Current: No pain currently Severity: Maximum: No pain Recent Healthcare: Recent hospitalization, Recent testing, Previous diagnosis, Prior workup Similar Sx Previous: Yes Past Medical History Past Medical History Obesity (says was over 400 pounds a year and half ago but currently 280 pounds) Obstructive sleep apnea is on his problem list but he denies this, says he has never been tested for, and does not have a CPAP machine Hypertension Hyperlipidemia Diabetes mellitus with neuropathy Peripheral vascular disease s/p RLE arterial stenting Nonhealing ulcers of both feet 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 Ruptured lumbar disc in 1998 Past Surgical History Tonsillectomy Surgery on a left kidney cyst Right lower extremity balloon angioplasty and arterial stenting Smoking History Current Every Day Smoker Social History Alcohol Use: Denies alcohol use Drug Use: Denies drug use Ambulatory Status Independent Review of Systems Full Review of Systems Constitutional: Denies: Chills, Fever Cardiovascular: Denies: Chest pain GI: Denies: Abdominal pain Neurologic: Reports: Dizziness, Lightheaded, Syncope (near), Denies: Change LOC, Confusion, Focal weakness, Headache, Numbness, Slurred speech, Spinning sensation, Unable to speak Complete sys rev & neg: except as marked. Physical Exam Vital Signs Vital Signs Date Time Temp Pulse Resp B/P Pulse Ox O2 Delivery O2 Flow Rate FiO2 7/8/17 16:53 73 18 142/71 99 Room Air 12/20/16 15:39 74 14 99/59 96 Room Air 12/20/16 15:23 36.8 74 10 100/64 94 Room Air Initial VS: Reviewed, Vital signs normal Head / Eyes: Atraumatic, Normocephalic, PERRL ENT: Mucous membranes moist, Conjunctiva normal, No scleral icterus Neck: Supple, Full range of motion Respiratory: Breath sounds normal, Clear to auscultation, No respiratory distress Cardiovascular: Regular rate & rhythm, Heart sounds normal, Intact distal pulses Abdomen / GI: Soft, Non-tender, No distention Extremities: Vascular intact, Neuro intact, No swelling Skin: Warm, Dry, No cyanosis Neurologic: Alert, Oriented, Nonfocal Psychiatric: Mood/affect normal, Behavior normal, Normal thought content General/Constitutional: Awake, Alert, No acute distress, Cooperative, Not toxic appearing BP 92/64 during interview while lying flat Lower Extremity / Pelvis / MS: No deformity, Neurologic intact, Vascular intact Wound bandage over right foot that was placed this morning Interpretation & Diagnostics Lab Results Interpretation Result Diagram: 12/21/16 0600 12/21/16 0600 Test 12/20/16 15:45 Band Neutrophils % 2% (1-5) Metamyelocytes % 2% (0-0) Magnesium Level 2.1mg/dL (1.6-2.6) Troponin T < 0.010ug/L (0.0-0.011) Pro-B-Type Natriuretic Peptide 639.5pg/mL (0-376) ECG Interpretation ECG Interpretation: Sinus rhythm rate 74 Old inferior infarct Time: 15:36 Interpreted by: ED physician Re-Eval/Medical Decision Med Decision/Clinical Course Discussed case with pts hospitalist Anatoly Vizcaino who notes he was very eager to get home and was discharged sooner than he would have liked due to pt insistence. I am concerned for the possibility of sepsis vs iatrogenic hypotension as pt notes 2 new BP meds were added during his hospitalization for RLE infection related to DMII. Pt currently being treated with ertapenem daily Time of Eval: 16:24 Re-Evaluation/Progress Note: Pt rechecked. Informed pt of need for admission. Pt understands and agrees with need for admission. All questions addressed. Consultation : Referral / Consult Name: Anatoly Vizcaino MD Consulted With: Hospitalist Call Returned at: 16:24 Development Director: Will see patient, Agrees with eval, Agrees with plan, Accepts admit Counseled Regarding: Diagnosis, Lab results, Need for admission Discharge & Departure Primary Impression: Hypotension Hypotension type: unspecified hypotension type Qualified Code: I95.9 - Hypotension, unspecified Additional Impressions: Near syncope Orthostasis Chronic foot ulcer Laterality: right Non-pressure ulcer stage: unspecified non-pressure ulcer stage Qualified Code: L97.519 - Non-pressure chronic ulcer of other part of right foot with unspecified severity JUANITA (acute kidney injury) Sepsis Sepsis type: sepsis due to unspecified organism Qualified Code: A41.9 - Sepsis, unspecified organism Leukocytosis Leukocytosis type: unspecified Qualified Code: D72.829 - Elevated white blood cell count, unspecified Thrombocytosis Anemia Anemia type: unspecified type Qualified Code: D64.9 - Anemia, unspecified Hyperglycemia Disposition: ADMITTED TO HOSPITAL Discharge Condition All VS Reviewed: Yes Condition: Stable Referrals: Nida Garza MD (PCP) Scribe Attestation Portions of this note were transcribed by Bolivar Dela Cruz. I, Dr. Cook personally performed the history, physical exam and medical decision-making; I reviewed and confirmed the accuracy of the information in the transcribed note. Signed by Faustina Fontanez, 12/20/16 - 1600 copies to: Nida Garza MD, Gary R DO Dec 20, 2016 15:55 BOLIVAR DELA CRUZ Dec 20, 2016 16:03 212mg/dL (60-99) Calcium Level 9.3mg/dL (8.5-10.1) Magnesium Level 2.1mg/dL (1.6-2.6) Total Bilirubin 0.4mg/dL (0.0-1.2) Aspartate Amino Transf (AST/SGOT) 47U/L (0-50) Alanine Aminotransferase (ALT/SGPT) 31U/L (0-44) Alkaline Phosphatase 232U/L (25-160) Troponin T < 0.010ug/L (0.0-0.011) Total Protein 8.0g/dL (6.4-8.4) Albumin 2.5g/dL (3.4-5.0) ECG Interpretation ECG Interpretation: Sinus rhythm rate 74 Old inferior infarct Time: 15:36 Interpreted by: ED physician Re-Eval/Medical Decision Time of Eval: 16:24 Re-Evaluation/Progress Note: Pt rechecked. Informed pt of need for admission. Pt understands and agrees with need for admission. All questions addressed. Consultation : Referral / Consult Name: Anatoly Vizcaino MD Consulted With: Hospitalist Call Returned at: 16:24 Development Director: Will see patient, Agrees with eval, Agrees with plan, Accepts admit Counseled Regarding: Diagnosis, Lab results, Need for admission Discharge & Departure Primary Impression: Hypotension Hypotension type: unspecified hypotension type Qualified Code: I95.9 - Hypotension, unspecified Additional Impressions: Near syncope Orthostasis Chronic foot ulcer Laterality: right Non-pressure ulcer stage: unspecified non-pressure ulcer stage Qualified Code: L97.519 - Non-pressure chronic ulcer of other part of right foot with unspecified severity JUANITA (acute kidney injury) Disposition: ADMITTED TO HOSPITAL Discharge Condition All VS Reviewed: Yes Condition: Stable Referrals: Nida Garza MD (PCP) Scribe Attestation Portions of this note were transcribed by Bolivar Dela Cruz. IDr. Cook personally performed the history, physical exam and medical decision-making; I reviewed and confirmed the accuracy of the information in the transcribed note. Signed by Faustina Fontanez, 12/20/16 - 1599 copies to: Nida Garza MD, Gary R DO Dec 20, 2016 15:55 BOLIVAR DELA CRUZ Dec 20, 2016 16:03
[2016-12-20 16:09] LABS: Mean Corpuscular Hemoglobin 26.3 pg (27.0-35.0); Platelet Count 651 bil/L (150-400)
[2016-12-20 16:21] LABS: Mean Corpuscular Volume 83.1 fL (81-100)
[2016-12-20 16:26] LABS: INR 1.08 ratio
[2016-12-20 16:35] LABS: BASOPHILS % (AUTO) 1 % (0-3); EOSINOPHILS % (AUTO) 2 % (0-5); MONOCYTES % (AUTO) 6 % (4-12); NEUTROPHILS % (AUTO) 43 % (40-74)
[2016-12-20 16:36] LABS: TROPONIN T < 0.010 ug/L (0.0-0.011)
[2016-12-20] MEDS ORDERED: Polyethylene Glycol (PEG) 17 Gm Powder PO PRN (16:40)
[2016-12-20] MEDS ORDERED: Glucose 40% Oral Gel 15 Gm Tube PO PRN (16:40)
[2016-12-20] MEDS ORDERED: Ondansetron 2 mg/mL 2 mL Inj IVPUSH PRN (16:40)
[2016-12-20 16:44] LABS: Magnesium 2.1 mg/dL (1.6-2.6)
[2016-12-20 16:53] VITALS: BP 142/71; PULSE 73; RESP 18; O2SAT 99
--- NOTE | 2016-12-20 17:07 | PCM.HPMED ---
Subjective Date of Service Dec 20, 2016 Primary Provider: Admitting Physician: Primary Care Physician: Nida Garza MD Attending Physician: Admit Status: From the Emergency Department, 23-Hour Observation, [facility] Telemetry Chief Complaint: Near syncopal episode History of Present Illness: This is a 66-year-old woman discharged from hospital 3 hours ago. His discharge diagnosis was a soft tissue infection and gangrene as well as osteomyelitis of the right foot and calcaneus. The patient also has history of diabetes. He left the hospital with caregiver decided to go to [facility] to tack picker some supplies. There is good anal car he felt quite lightheaded and sweaty locked. He was assisted back to her ultimate transport back to the emergency department. There is found to be hypotensive with a systolic pressure of 90. She denies any chest pain or neurologic symptoms. No difficulty with acute dyspnea or palpitations. He does have eccentric history of chronic hypertension and had spent most of his time on the hospital in the supine position. The patient has declined care home facility placement at the time of discharge. He denies any vomiting or other symptoms. Review of Systems: He denies headache, visual changes. He did have some tunnel vision at the time of his near syncope. He denies diarrhea. All was reviewed and otherwise noncontributory except as noted in history of present illness Allergies Coded Allergies: metformin (Unverified Allergy, Mild, 12/09/16) DIARRHEA oxycodone (Unverified Allergy, Mild, 12/09/16) Home Medications Amlodipine (Amlodipine) 10 Mg Tablet 10 MG PO DAILY Aspirin Chew (Aspirin Chew) 81 Mg Chew 81 MG PO DAILY Atorvastatin Calcium (Atorvastatin Calcium) 10 Mg Tablet 10 MG PO HS Cholecalciferol (Vitamin D3) (Vitamin D3) 1,000 Unit Tab.chew 1,000 UNIT PO DAILY Ertapenem Sodium (Invanz) 1 Gm Vial.port 1 GM IV DAILY Fenofibrate (Fenofibrate) 160 Mg Tablet 160 MG PO DAILY Insulin Glargine (Lantus U100 Solostar Insulin Pen) 100 Unit/1 Ml Insuln.pen 1 UNIT SUBQ DIRECTED Insulin Human Lispro (HumaLOG U100 Insulin Vial) 100 Unit/Ml Unit 1 UNIT SUBQ ASDIRECTED Check blood sugars before meals and at bedtime. Use correction factor only before meals. Blood Sugar Lispro Correction: <151, 0 units; 151-175, 1 unit; 176-200, 2 units; 201-225, 3 units; 226-250, 4 units; 251-275, 5 units; 276-300 , 6 units; 301-325, 7 units; 326-350, 8 units; 351-375, 9 units; 376-400, 10 units; >400, 12 units. Losartan Potassium (Cozaar) 25 Mg Tablet 50 MG PO DAILY Metoprolol Succinate ER (Metoprolol Succinate ER) 25 Mg Tab.er.24h 25 MG PO BID Warfarin Sodium (Warfarin Sodium) 10 Mg Tablet 15 MG PO DAILY Scheduled PRN Hydromorphone (Dilaudid) 2 Mg Tablet 2-4 MG PO Q4H PRN PRN For Pain PMH Right foot soft tissue infection, gangrene and possible hemolysis of the calcaneus. Only on IV ertapenem. 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 Ruptured lumbar disc in 1998 Surgical History Recent PCI and revascularization of his right lower extremity including a popliteal artery dilation and stenting Tonsillectomy Surgery on a left kidney cyst Right lower extremity balloon angioplasty and arterial stenting Family History Positive for hypertension Social History Occupation: none Hx Alcohol Use: Yes (not since 70's.) Hx Substance Use: No Smoking Status: Current Every Day Smoker Living Arrangement: Alone Exam Vital Signs Vital Sign - Last Date Time Temp Pulse Resp B/P Pulse Ox O2 Delivery O2 Flow Rate FiO2 12/20/16 16:53 73 18 142/71 99 Room Air 12/20/16 15:23 36.8 Exam Oriented 3. No distress. Fluent speech. Normal affect. Normal skull. Poor dentition. Normal nose and ears. Anicteric sclera, symmetric pupils Oropharynx is unremarkable, no facial droop. Neck is supple, normal thyroid. No adenopathy. Lungs are clear, normal effort rate. Heart is regular without murmur gallop or rub. Abdomen soft, nondistended or tender. Extremities are free of pedal edema. Right foot is wrapped. The patient is dusky toes with delayed capillary refill on the right foot. Good radial and poor pulses. Skin is free of rash, lesions. No petechiae or ecchymosis. Joints are grossly normal. Cranial nerves are grossly normal. Motor strength is normal in all extremities. Normal muscular tone. Lab and Diagnostics Result Diagram: 12/20/16 1545 12/20/16 1545 12-lead ECG Sinus rhythm, septal Q waves. No ST segment changes. Assessment & Plan Near-syncope, resolved prior to arrival. Patient was in sinus rhythm without evidence of ischemia or arrhythmia. Hypotension, possible volume depletion. POA and persistent. Fluid resuscitate. Follow clinically. Diabetes mellitus 2, POA. Plan is Lantus 30 twice a day and nutritional correctional lispro. Right foot infection, POA and active. Continue ertapenem 1 g every 24 hours Patient is full resuscitation, reconfirmed today will follow POLST tomorrow before discharge. She is admitted observation status, anticipate only one night length of stay. Pain Evaluation: Adequate Pain Control Resuscitation Status: CPR: Attempt Resuscitation Time spent 40 minutes Anatoly Vizcaino MD Dec 20, 2016 17:06
--- NOTE | 2016-12-20 17:43 | PCM.CONPHA ---
Subjective Requesting Provider: Anatoly Vizcaino MD Near syncopal episode Reason for Pharmacy Consult: Anticoagulation Management Assessment/Plan Assessment/Plan Pharmacy to dose warfarin for senior living anticoagulation for patient with old DVT /PE with goal INR 2-3: Age 66 Ht 76 Inches Wt 128K HCT/PLT = 32.9/651 INR today=1.08 From medication reconciliation, the patient takes warfarin 15mg daily, which has been ordered x 1 today. The patient is a readmit after a few hours in the community. Warfarin was stopped for a procedure earlier in the week, and the patient was bridged with enoxaparin. The hospitalist will be contacted to discuss bridging. Pharmacy will monitor INR and order warfarin daily. Mame Singletary [facility] Dec 20, 2016 17:43
[2016-12-20 17:44] VITALS: PULSE 73
[2016-12-20 17:45] VITALS: BP 123/81; PULSE 73; RESP 20; O2SAT 99
[2016-12-20] MEDS: Sodium Chloride LOK Flush 10 mL Syringe IVFLUSH SCH (18:07)
--- NOTE | 2016-12-20 19:04 | NUR ---
Admit [facility] Pt arrived approx 1700 transfer from ED. Pt is A&Ox3, on RA, SL, currently resting in bed. All belongings arrived with pt and in room. Care continues.
[2016-12-20] MEDS: Insulin LISPRO 300 Unit/3 mL Inj SUBQ SCH ×2 (19:07→22:27)
[2016-12-20 20:46] VITALS: BP 106/98; PULSE 105; RESP 20; O2SAT 98
[2016-12-20] MEDS: Insulin GLARgine 100 Unit/mL Syringe SUBQ SCH (20:48)
--- NOTE | 2016-12-20 20:49 | NUR ---
PRASANNA explained and signed. Copy of PRASANNA and Medicare self administered medication information given to pt.
--- NOTE | 2016-12-21 00:06 | NUR ---
Activity Pt alert and oriented x3, pleasant and cooperative with cares, remained in bed for the shift. Swallowed medications whole with no issues, BS high at 319 and 357. 30 units Lantus and 7 units NovoLog given to help control elevated BS. Will continue to watch. Pt resting at this time.
[2016-12-21] MEDS: Sodium Chloride LOK Flush 10 mL Syringe IVFLUSH SCH ×2 (00:31→08:57)
[2016-12-21 00:52] VITALS: BP 91/54; PULSE 73; RESP 18; O2SAT 95
[2016-12-21 05:48] VITALS: PULSE 80
[2016-12-21 06:12] LABS: BASOPHILS % (AUTO) 0.5 % (0-3); EOSINOPHILS % (AUTO) 1.9 % (0-5); MONOCYTES % (AUTO) 5.5 % (4-12); Mean Corpuscular Hemoglobin 25.9 pg (27.0-35.0); Mean Corpuscular Volume 83.9 fL (81-100); NEUTROPHILS % (AUTO) 53.9 % (40-74); Platelet Count 547 bil/L (150-400)
[2016-12-21 06:24] LABS: INR 1.1 ratio
[2016-12-21] MEDS: Insulin LISPRO 300 Unit/3 mL Inj SUBQ SCH ×2 (08:00→12:08)
[2016-12-21] MEDS ORDERED: Ertapenem Inj 1,000 MG in 0.9% Sodium Chloride 100 ML IV SCH (08:30)
[2016-12-21 08:31] VITALS: PULSE 73
[2016-12-21] MEDS: Insulin GLARgine 100 Unit/mL Syringe SUBQ SCH (08:57)
[2016-12-21 09:24] VITALS: BP 111/69; PULSE 80; RESP 20; O2SAT 98
--- NOTE | 2016-12-21 09:28 | PCM.PHAPRO ---
Progress Date of Service: Dec 21, 2016 Near syncopal episode WARFARIN MANAGEMENT A\ 66yo m with history of DVT/PE INR goal= 2-3 Current INR=1.1 Hct=29.2 Mua=863 Home Warfarin dose 15mg PO daily No bleeding reported by RN P\ Will continue home dose Warfarin 15mg PO x1 tonight and continue following daily INRs Get [facility] Dec 21, 2016 09:28
--- NOTE | 2016-12-21 10:47 | PCM.DIMED ---
Discharge Instructions Date of Service Dec 21, 2016 Dates of Hospitalization Dec 20, 2016 at 17:04 Discharge Diagnosis Discharge Diagnosis Near syncope 2/2 hypotensive episode. Cellulitis with gangrene, right foot secondary to Severe PVD. Peripheral vascular disease status post stenting, improved Diabetes mellitus 2, poorly controlled Chronic anticoagulation with warfarin for history of DVT and pulmonary embolus Hypertension and hyperlipidemia Systolic heart murmur Diet Discharge Diet: Heart Healthy, Diabetic Activity Discharge Activity: Limited until seen by PCP Call your provider Call your provider for: Shortness of breath, Chest pain, Excessive diarrhea Patient Instructions Follow-up plan [facility] Follow up with podiatry outpatient. Follow up with pcp outpatient. Additional Information He will go to the medical outpatient center at [facility] on ThursdayDecember 21 for IV antibiotics. He will go to the oncology infusion center in [place] for IV antibiotics once a day starting on December 22 PCP to assess the need for ARB and betablocker , for now will continue amlodipine Severiano Estrada MD Dec 21, 2016 10:44
[2016-12-21 10:51] VITALS: BP 130/72; PULSE 84
[2016-12-21 10:54] VITALS: BP 94/65; PULSE 93
--- NOTE | 2016-12-21 11:26 | NUR ---
Social Work: Initial Assessment / Multidisciplinary Rounds / D/C Data: Pt is a 66 y/o male admitted for near syncope/hypotension. Pts PCP is Dr Garza, pts insurance is Medicare with [employer] sup. EMR reviewed. Readmit score is 3, high. Pt discussed in rounds. MD states that pt discharged yesterday and likely had a blood pressure event prompting him to come back, MD states issue has resolved and he is ready for d/c today. D/C orders are in. MD states pt will receive IVABX dose today and no further need for MOC today as previously planned. Pt lives alone in [place] with 2 steps to enter, uses a cane and walker, drives, has no HH hx, has hx at SNF at [facility], no LTC or VA benefits, is not a caregiver. Previous d/c plan per ASSISTANT STORE MANAGER TRAINEE notes: IV Abx [facility] on Thursday. Assessment: Pt who is independent at baseline. Plan: Pt will d/c home today via POV with IVABX through [facility] tomorrow. No further d/c planning needs at this time. ASSISTANT STORE MANAGER TRAINEE will continue to follow if needs arise. EMMETT Limon Addendum: 12/21/16 at 1127 by JAIDEN MARINO Amended: Links added.
--- NOTE | 2016-12-21 12:40 | NUR ---
Dressing change Assisted with dressing change on rt heel at approx 1215 by AYSHA Lawrence, pt to f/u with WC upon d/c. Wound had minimal drainage. Pt reports no pain at site. Pt will be sent home with enough supplies to last him until he sees WC this coming week.
--- NOTE | 2016-12-21 13:46 | PCM.DC.MED ---
Discharge Summary Date of Service Dec 21, 2016 Dates of Hospitalization Date of Hospital Admission Dec 20, 2016 at 17:04 Date of Discharge: Dec 21, 2016 Providers: Admitting Physician: Shelton Vizcaino MD Primary Care Physician: Nida Garza MD Attending Physician: Severiano Estrada MD Diagnosis at Time of Discharge Diagnosis at Time of Discharge Near syncope 2/2 hypotensive episode. Cellulitis with gangrene, right foot secondary to Severe PVD. Peripheral vascular disease status post stenting, improved Diabetes mellitus 2, poorly controlled Chronic anticoagulation with warfarin for history of DVT and pulmonary embolus Hypertension and hyperlipidemia Systolic heart murmur Procedures ECG 12 Lead Sinus rhythm, septal Q waves. No ST segment changes. Brief History This is a 66-year-old woman discharged from hospital 3 hours ago. His discharge diagnosis was a soft tissue infection and gangrene as well as osteomyelitis of the right foot and calcaneus. The patient also has history of diabetes. He left the hospital with caregiver decided to go to [facility] to peanut picker some supplies. There is good anal car he felt quite lightheaded and sweaty locked. He was assisted back to her ultimate transport back to the emergency department. There is found to be hypotensive with a systolic pressure of 90. She denies any chest pain or neurologic symptoms. No difficulty with acute dyspnea or palpitations. He does have eccentric history of chronic hypertension and had spent most of his time on the hospital in the supine position. The patient has declined usp facility placement at the time of discharge. He denies any vomiting or other symptoms. Hospital Course Near-syncope, resolved prior to arrival. Patient was in sinus rhythm without evidence of ischemia or arrhythmia. Hypotension, patient insisted he takes only amlodopine at home. His orthostatics were positive for orthostatic hypotension. Will stop metoprolol and losartan for now Diabetes mellitus 2, POA. Plan is Lantus 30 twice a day and nutritional correctional lispro. Right foot infection, POA and active. Continue ertapenem 1 g every 24 hours Patient is full resuscitation, reconfirmed today will follow POLST tomorrow before discharge. She is admitted observation status, anticipate only one night length of stay. Exam Vital Signs (Last) Date Time Temp Pulse Resp B/P Pulse Ox O2 Delivery O2 Flow Rate FiO2 12/21/16 10:54 93 94/65 12/21/16 09:24 36.4 20 98 Room Air Test 7/8/17 15:45 12/21/16 06:00 Band Neutrophils % 2% (1-5) Metamyelocytes % 2% (0-0) Magnesium Level 2.1mg/dL (1.6-2.6) Troponin T < 0.010ug/L (0.0-0.011) Pro-B-Type Natriuretic Peptide 639.5pg/mL (0-376) White Blood Count 12.7th/mm3 (3.8-10.1) Red Blood Count 3.48mil/mm3 (4.40-5.80) Hemoglobin 9.0g/dL (13.8-17.2) Hematocrit 29.2% (41.0-50.0) Mean Corpuscular Volume 83.9fL (81-100) Mean Corpuscular Hemoglobin 25.9pg (27.0-35.0) Mean Corpuscular Hemoglobin Concent 30.8% (32.0-37.0) Red Cell Distribution Width 15.4% (12.3-15.4) Platelet Count 547bil/L (150-400) Neutrophils (%) (Auto) 53.9% (40-74) Lymphocytes (%) (Auto) 35.3% (14-46) Monocytes (%) (Auto) 5.5% (4-12) Eosinophils (%) (Auto) 1.9% (0-5) Basophils (%) (Auto) 0.5% (0-3) Prothrombin Time 11.8sec (8.1-12.5) Prothromb Time International Ratio 1.10ratio Sodium Level 136mEq/L (134-144) Potassium Level 5.2mEq/L (3.5-5.2) Chloride Level 102mEq/L (97-108) Carbon Dioxide Level 21mmol/L (18-29) Blood Urea Nitrogen 37mg/dL (8-27) Creatinine 2.06mg/dL (0.76-1.27) Estimat Glomerular Filtration Rate 35mL/min (>59) Glucose Level 218mg/dL (60-99) Calcium Level 8.5mg/dL (8.5-10.1) Total Bilirubin 0.2mg/dL (0.0-1.2) Aspartate Amino Transf (AST/SGOT) 43U/L (0-50) Alanine Aminotransferase (ALT/SGPT) 25U/L (0-44) Alkaline Phosphatase 199U/L (25-160) Total Protein 6.2g/dL (6.4-8.4) Albumin 2.5g/dL (3.4-5.0) Discharge Medications Discharge Medications Amlodipine (Amlodipine) 10 Mg Tablet 10 MG PO DAILY (Reported) Aspirin Chew (Aspirin Chew) 81 Mg Chew 81 MG PO DAILY Prescribed by: SHELTON VIZCAINO MD Atorvastatin Calcium (Atorvastatin Calcium) 10 Mg Tablet 10 MG PO HS (Reported) Cholecalciferol (Vitamin D3) (Vitamin D3) 1,000 Unit Tab.chew 1,000 UNIT PO DAILY (Reported) Ertapenem Sodium (Invanz) 1 Gm Vial.port 1 GM IV DAILY Prescribed by: SHELTON VIZCAINO MD Fenofibrate (Fenofibrate) 160 Mg Tablet 160 MG PO DAILY (Reported) Insulin Glargine (Lantus U100 Solostar Insulin Pen) 100 Unit/1 Ml Insuln.pen 1 UNIT SUBQ DIRECTED (Reported) Insulin Human Lispro (HumaLOG U100 Insulin Vial) 100 Unit/Ml Unit 1 UNIT SUBQ ASDIRECTED (Reported) Check blood sugars before meals and at bedtime. Use correction factor only before meals. Blood Sugar Lispro Correction: <151, 0 units; 151-175, 1 unit; 176-200, 2 units; 201-225, 3 units; 226-250, 4 units; 251-275, 5 units; 276-300 , 6 units; 301-325, 7 units; 326-350, 8 units; 351-375, 9 units; 376-400, 10 units; >400, 12 units. Warfarin Sodium (Warfarin Sodium) 10 Mg Tablet 15 MG PO DAILY (Reported) As needed Hydromorphone (Dilaudid) 2 Mg Tablet 2-4 MG PO Q4H PRN PRN For Pain Prescribed by: SHELTON VIZCAINO MD Followup Plan Follow[facility] Follow [facility] with [facility]ry outpatient. Follow up with pcp outpatient. Discharge Diet: Heart Healthy, Diabetic Discharge Activity: Limited until seen by PCP Severiano Estrada MD Dec 21, 2016 13:45
--- NOTE | 2016-12-21 15:39 | NUR ---
discharge At 1300 reviewed d/c paperwork with pt including care notes and new prescriptions, pt signed and given originals, copies to chart. IV d/c intact, tele removed. Pt VS stable at d/c with exception of orthostatic BP which MD was made aware of before d/c, pt to f/u with PCP regarding BP medication mgmt. All belongings packed and taken with him, taken off unit via WC by AUDITING CONTROL CLERK to sisters car for ride home at approx 1330.
--- NOTE | 2016-12-21 15:44 | NUR ---
Orthostatic BP Pt BP taken approx 1230 and pt is orthostatic positive, systolic dropped more than 20 points from sitting to standing position. MD aware and d/c proceeded as planned, with pt to f/u with PCP regarding BP medication mgmt. Educational info given to pt at d/c regarding how to avoid near syncope events, pt expressed understanding.
--- NOTE | 2016-12-22 10:59 | NUR ---
Called and left message for Bertha at [facility] in [place], [facility] regarding infusions at [facility] in [place]. Orders were completed on 12/21 and 12/20 with regard to follow up with [facility] and IV ABX regimen. Left Message asking for call back and fax number to send orders to. Updated ADVERTISING INTERN Addendum: 12/22/16 at 1135 by TORO CASILLAS CM Faxed all orders from both stays discharge on 12/20&12/21, they all indicate that patient is needing to continue IV ABX at [facility]. Bertha is calling 's office to see if he is taking on the patient for infusions and she does not have him on the schedule currently but will work with the orders I sent her. Updated [facility]
== END 2016-12-21 13:45 | disposition home or self-care (01) ==
LOC: SED 15:17 → EDUNIT# 15:17 → EDBD 15:17 → MPC 17:04 → INTOOBSV 17:04 → MPC 17:31
PROVIDERS: ADMIT Hospitalist; ATTEND Internal Medicine
DX: I95.1 Orthostatic hypotension (principal); L03.115 Cellulitis of right lower limb; E11.52 Type 2 diabetes mellitus with diabetic peripheral angiopathy with gangrene; E11.42 Type 2 diabetes mellitus with diabetic polyneuropathy; E11.65 Type 2 diabetes mellitus with hyperglycemia; M86.8X7 Other osteomyelitis, ankle and foot; I10 Essential (primary) hypertension; E78.5 Hyperlipidemia, unspecified; R01.1 Cardiac murmur, unspecified; E66.9 Obesity, unspecified; Z86.718 Personal history of other venous thrombosis and embolism; Z86.711 Personal history of pulmonary embolism; F17.210 Nicotine dependence, cigarettes, uncomplicated; Z79.01 Long term (current) use of anticoagulants; Z79.4 Long term (current) use of insulin; Z79.82 Long term (current) use of aspirin
CPT/HCPCS: 36415; 80053; 83735; 83880; 84484; 85025; 85610; 93005; 96361; 96365; 96375; 99285; G0378; J1335; J1815; J2405; J7030